=== PATIENT | male | born 1975 | race Caucasian/White ===

== ENCOUNTER 2020-12-14 17:28 | Emergency (ER) | payer OTHER ==
--- NOTE | 2020-12-14 18:45 | EDM.PDOC ---
ED HPI GENERAL MEDICAL PROBLEM - General Chief Complaint: Respiratory Problem Stated Complaint: COUGH Time Seen by Provider: 12/14/20 17:36 Source of Information: Reports: Patient History Limitations: Reports: No Limitations - History of Present Illness INITIAL COMMENTS - FREE TEXT/NARRATIVE: HISTORY AND PHYSICAL: History of present illness: Patient is a 45-year-old male who presents emergency room today with concern of possible COVID-19 viral infection. Patient states morning when he woke up, he has had general body aches and a cough. Patient states that he is not vaccin ated for Covid so came to the emergency room concerned that he was possibly infected. Patient denies any other symptoms or concerns. Patient denies fever, chills, chest pain, shortness of breath. Denies headache, neck stiff ness, change in vision, syncope, or near syncope. Denies nausea, vomiting, abdominal pain, diarrhea, constipation, or dysuria. Has not noted any blood in urine or stool. Patient has been eating and drinking appropriately. Review of systems: As per history of present illness and below otherwise all systems reviewed and negative. Past medical history: As per history of present illness and as reviewed below otherwise noncontributory. Surgical history: As per history of present illness and as reviewed below otherwise noncontributory. Social history: See social history for further information Family history: As per history of present illness and as reviewed below otherwise noncontributory. Physical exam: General: Patient is alert, oriented, and in no acute distress. Patient sitting comfortably on exam table. HEENT: Atraumatic, normocephalic, pupils equal and reactive bilaterally, negative for conjunctival pallor or scleral icterus, mucous membranes moist, TMs normal bilaterally, throat clear, neck supple, nontender, trachea midline. No drooling or trismus noted. No meningeal signs. No hot potato voice noted. Lungs: Clear to auscultation, breath sounds equal bilaterally, chest nontender. Heart: S1S2, regular rate and rhythm without overt murmur Abdomen: Soft, nondistended, nontender. Negative for masses or hepatosplenomegaly. Negative for costovertebral tenderness. Pelvis: Stable nontender. Genitourinary: Deferred. Rectal: Deferred. Skin: Intact, warm, dry. No lesions or rashes noted. Extremities: Atraumatic, negative for cords or calf pain. Neurovascular unremarkable. Neuro: Awake, alert, oriented. Cranial nerves II through XII unremarkable. Cerebellum unremarkable. Motor and sensory unremarkable throughout. Exam nonfocal. Notes: Signs and symptoms that were prompt return to the ED thoroughly discussed with patient. Discussed importance for follow-up with a primary care provider. Voices understanding and is agreeable to plan of care. Denies any further questions or concerns at this time. Diagnostics: COVID19, due to patient's mild tachycardia, basic lab work was offered, however, he declines at this time. All risks versus benefits discussed with patient expresses understanding. Therapeutics: None Prescription: None Impression: COVID-19 viral infection Plan: 1. Your COVID-19 screening is positive. That means you do have the coronavirus and are considered contagious. Your vital signs and oxygen saturation are well enough that you were able to monitor your symptoms at home. Continue to monitor for trouble breathing, new confusion or inability to arouse, bluish lips or face or any of the other symptoms we discussed -if this occurs please return to the emergency room.Continue to monitor your health at home for worsening symptoms so that you can be taken care of and treated quickly if needed. 2. Please self quarantine until 10 days have passed since your symptoms began AND you are fever free (<100.4 degrees fahrenheit) for 24 hours without the use of fever-reducing medications AND symptoms are improving. You should restrict activities outside of your home, except for getting medical care. Do not go to work, school, or public areas. Avoid using public transportation, ride-sharing, or taxis. Inform any persons that you have been in contact with since you started becoming symptomatic that you have tested positive; they should be made aware and take the appropriate steps as needed. 3. You may alternate Tylenol and ibuprofen as needed for pain and fever management. 4. The [facility] will be calling you and following up with you. The [place] COVID 19 Hotline phone number , They are open Saturday - Saturday 7am - 7pm. Follow up with your primary care provider for re-evaluation and re-testing after quarantine and discuss when you should be seen. 5. For more specific guidelines regarding isolation/quarantine please visit this website. https://www.health.[place].gov/sites/www /files/documents/Files/HARJINDER/coronavirus/Factsheet_for_People_With_COVID-19.pdf Definitive disposition and diagnosis as appropriate pending reevaluation and review of above. Bilateral Back Pain Score (Numeric/FACES): 3 - Related Data Allergies Allergy/AdvReac Type Severity Reaction Status Date / Time amoxicillin [Amoxicillin] Allergy Mild Hives Verified 12/14/20 18:32 Home Meds: Home Meds Losartan/Hydrochlorothiazide [Losartan-HCTZ 100-12.5 MG] 1 each PO 12/14/20 [History] Past Medical History - Past Health History Medical/Surgical History: Denies Medical/Surgical History ED ROS GENERAL - Review of Systems Review Of Systems: Comprehensive ROS is negative, except as noted in HPI. ED EXAM, GENERAL - Physical Exam Exam: See Below (see dictation) Course - Vital Signs Last Recorded V/S: Last Vital Signs Temp 98.5 F 12/14/20 18:55 Pulse 115 H 12/14/20 18:55 Resp 20 12/14/20 18:55 BP 135/87 12/14/20 18:55 Pulse Ox 94 L 12/14/20 18:55 - Orders/Labs/Meds Labs: Laboratory Tests 12/14/20 Range/Units 18:45 SARS-CoV-2 RNA (SHIKHA) POSITIVE H (NEGATIVE) Departure - Departure Time of Disposition: 18:44 Disposition: Home, Self-Care 01 Clinical Impression: COVID-19 virus infection - Discharge Information Instructions: COVID-19 Frequently Asked Questions Referrals: PCP,None [Primary Care Provider] - Forms: ED Department Discharge Additional Instructions: The following information is given to patients seen in the emergency department who are being discharged to home. This information is to outline your options for follow-up care. We provide all patients seen in our emergency department with a follow-up referral. The need for follow-up, as well as the timing and circumstances, are variable depending upon the specifics of your emergency department visit. If you don't have a primary care physician on staff, we will provide you with a referral. We always advise you to contact your personal physician following an emergency department visit to inform them of the circumstance of the visit and for follow-up with them and/or the need for any referrals to a consulting specialist. The emergency department will also refer you to a specialist when appropriate. This referral assures that you have the opportunity for follow-up care with a specialist. All of these measure are taken in an effort to provide you with optimal care, which includes your follow-up. Under all circumstances we always encourage you to contact your private physician who remains a resource for coordinating your care. When calling for follow-up care, please make the office aware that this follow-up is from your recent emergency room visit. If for any reason you are refused follow-up, please contact the [facility] Emergency Department at and asked to speak to the emergency department charge nurse. [facility] [address] [place] [address] [facility] [address] [place] [id number] 1. Your COVID-19 screening is positive. That means you do have the coronavirus and are considered contagious. Your vital signs and oxygen saturation are well enough that you were able to monitor your symptoms at home. Continue to monitor for trouble breathing, new confusion or inability to arouse, bluish lips or face or any of the other symptoms we discussed -if this occurs please return to the emergency room.Continue to monitor your health at home for worsening symptoms so that you can be taken care of and treated quickly if needed. 2. Please self quarantine until 10 days have passed since your symptoms began AND you are fever free (<100.4 degrees fahrenheit) for 24 hours without the use of fever-reducing medications AND symptoms are improving. You should restrict activities outside of your home, except for getting medical care. Do not go to work, school, or public areas. Avoid using public transportation, ride-sharing, or taxis. Inform any persons that you have been in contact with since you started becoming symptomatic that you have tested positive; they should be made aware and take the appropriate steps as needed. 3. You may alternate Tylenol and ibuprofen as needed for pain and fever management. 4. The [facility] will be calling you and following up with you. The [place] COVID 19 Hotline phone number , They are open Saturday - 7am - 7pm. Follow up with your primary care provider for re-evaluation and re-testing after quarantine and discuss when you should be seen. 5. For more specific guidelines regarding isolation/quarantine please visit this website. https://www.health.[place].gov/sites/www/files/documents/Files/HARJINDER/coronavirus/Factsh eet_for_People_With_COVID-19.pdf Sepsis Event Note (ED) - Focused Exam Vital Signs: Vital Signs Temp Pulse Resp BP Pulse Ox 12/14/20 18:55 98.5 F 115 H 20 135/87 94 L 12/14/20 18:30 98.4 F 111 H 18 149/98 H 96
[2020-12-14 18:56] VITALS: BP 135/87; PULSE 115
== END 2020-12-14 18:58 | disposition home or self-care (01) ==
LOC: MW.ED 17:28
DX: U07.1 COVID-19 (principal); Z88.0 Allergy status to penicillin
CPT/HCPCS: 99283; U0002

== ENCOUNTER 2020-12-23 13:55 | Inpatient (IN) | payer OTHER ==
[2020-12-23] MEDS ORDERED: Sodium Chloride 0.9% 2.5 ML Syringe FLUSH PRN (14:09)
[2020-12-23] MEDS ORDERED: Sodium Chloride 0.9% 10 ML Syringe FLUSH PRN (14:09)
[2020-12-23] MEDS ORDERED: Dexamethasone 4 MG Tab PO ONE (14:17)
[2020-12-23] MEDS ORDERED: Acetaminophen 500 MG Tab PO ONE (14:17)
--- NOTE | 2020-12-23 14:38 | PCM.EKG ---
#1 Interpretation EKG Date: 12/23/20 Time: 14:16 Rhythm: NSR Rate (Beats/Min): 104 Fouke: Normal P-Wave: Present QRS: Normal ST-T: Normal QT: Normal Comparison: NA - No Prior EKG EKG Interpretation Comments: Sinus Tachycardia
--- NOTE | 2020-12-23 15:01 | EDM.PDOC ---
ED HPI GENERAL MEDICAL PROBLEM - General Chief Complaint: Respiratory Problem Stated Complaint: LOW OXYGEN Time Seen by Provider: 12/23/20 14:09 - History of Present Illness INITIAL COMMENTS - FREE TEXT/NARRATIVE: CHIEF COMPLAINT(S): Shortness of breath HISTORY OF PRESENT ILLNESS: This is a 45-year-old man with a past medical history of obesity and hypertension who comes to the emergency department with a chief complaint of shortness of breath. The patient states that he was diagnosed with COVID-19 on December 14, 2020. He states that his symptoms started the exact same day. He states that he has just not been getting better and he went to the walk-in clinic because of increased shortness of breath. He states that they sent him here to the emergency department because his oxygen was low in the 84% range. He states that he has had increase shortness of breath, mild intermittent dry cough and body aches. He states that he has been using Tylenol and ibuprofen. He states that his shortness of breath is worse with ambulation. He denies any chest pain, lower extremity edema, recent travel, recent surgery or prior history of DVT or PE. He denies any other symptoms. REVIEW OF SYSTEMS: Constitutional: Positive for fever Eyes: Denies eye pain Ears, Nose, Mouth, & Throat: Denies earache Cardiovascular: Denies chest pain Respiratory: Positive for shortness of breath and nonproductive cough gastrointestinal: Denies Nausea, vomiting, diarrhea, hematochezia. Genitourinary: Denies hematuria Skin:Denies a rash MSK: Positive for body aches Neurological: Denies blurred vision Psychiatric: Denies depression PAST MEDICAL HISTORY: As per history of present illness and as reviewed below otherwise noncontributory. SURGICAL HISTORY: As per history of present illness and as reviewed below otherwise noncontributory. SOCIAL HISTORY: As per history of present illness and as reviewed below otherwise noncontributory. FAMILY HISTORY: As per history of present illness and as reviewed below otherwise noncontributory. EXAMINATION OF ORGAN SYSTEMS/BODY AREAS: Constitutional: Blood pressure is 99/64, heart rate 105, respiratory rate 28 with an oxygen saturation of 92% on 4 L nasal cannula. Temperature 38.2 General: Young man who appears to be in a mild amount of respiratory distress Psychiatric: Appropriate mood and affect. Eyes: No scleral icterus or conjunctival erythema ENMT: Moist mucous membranes. No pharyngeal erythema Cardiovascular: Regular, rate, and rhythm. No gallops, murmurs, or rubs. Bilateral upper extremity pulses symmetric and intact. No peripheral edema. No JVD. Respiratory: Lungs clear to auscultation bilaterally. No wheezes, rales, or rhonchi. Speaking in full sentences. Gastrointestinal: Soft, non-tender, non-distended. Normoactive bowel sounds Genitourinary: No suprapubic tenderness Musculoskeletal: Normal range of motion. Skin: No lesions or abrasions. Neurological: Alert, GCS 15 MEDICAL DECISION MAKING AND COURSE IN THE ED WITH INTERPRETATION/REVIEW OF DIAGNOSTIC STUDIES: This is a 45-year-old man with a past medical history of obesity and hypertension who comes to the emergency department with worsening shortness of breath, nonproductive cough who was found to be profoundly hypoxic at walk-in clinic who is currently saturating appropriately on 4 L nasal cannula with some mild shortness of breath. Cardiac monitoring at this time did reveal sinus tachycardia and pulse oximetry with good waveform was 92 to 93% on 4 L nasal cannula. We did place the patient on cardiac monitoring and pulse oximetry. We did obtain an EKG which was unremarkable. Will obtain CBC, CMP, CRP, troponin, chest x-ray and we will also obtain an angiogram of the chest to evaluate for pulmonary embolism. We will provide the patient with dexamethasone 6 mg by mouth and Tylenol for his fever. At this time the patient does meet SIRS criteria however the patient is known Covid positive. We will provide the patient with a mild bolus as we do note that excessive fluid hydration in Covid can cause significant worsening of their symptoms.' Laboratory: CBC is unremarkable. CMP reveals hyponatremia at 132, hypochloremia at 96, metabolic acidosis with a bicarbonate of 17.8. Acute kidney injury with a BUN of 58 and a creatinine of 2.4. Hyperglycemia at 115. Mild elevation in AST at 58. Hypoalbuminemia at 3.0. Troponin is negative. The radiological images were viewed by myself along with reading the report from the radiologist. CT angiogram of the chest reveals no acute pulmonary embolism. There is diffuse bilateral groundglass opacities consistent with COVID-19. After imaging I did discuss the results with the patient. At this time I did discuss admission. He was amenable to this plan. I contacted Dr. Cabrera who accepted the patient for admission. DISPOSITION: The patient was admitted to the hospital in stable condition. CONDITION: Fair PROCEDURES: Cardiac monitoring interpretation, pulse oximetry interpretation FINAL IMPRESSION(S)/DIAGNOSES: 1. Acute hypoxic respiratory failure secondary to COVID-19 pneumonia 2. Acute kidney injury 3. Acute metabolic acidosis likely secondary to #1 and #2 Critical Care Procedure Note Authorized and performed by: Leon Burch M.D. Critical Care Time: 40 minutes Due to a high probability of clinically significant, life threatening deterioration, the patient required my highest level of preparedness to intervene emergently and I personally spent this critical care time directly and personally managing the patient. This critical care time included obtaining a history, examining the patient, pulse oximetry; ordering and review of studies; arranging urgent treatment with development of a management plan; evaluation of a patients reponse to treatment; frequent assessment; and discussions with other providers. This critical care time was performed to assess and manage the high probability of imminent, life threatening deterioration that could result in multiorgan failure. It was exclusive of separate billable procedures and treating other patients. Please see MDM section and rest of the note for further information on patient assessment and treatment. Please see MDM section and rest of the note for further information on patient assessment and treatment. Leon Burch M.D. Treatments HAT COPYIST: Reports: Acetaminophen, NSAIDS lower back Pain Score (Numeric/FACES): 2 - Related Data Allergies Allergy/AdvReac Type Severity Reaction Status Date / Time amoxicillin [Amoxicillin] Allergy Mild Hives Verified 12/23/20 18:25 Home Meds: Home Meds Losartan/Hydrochlorothiazide [Losartan-HCTZ 100-12.5 MG] 1 each PO DAILY 12/14/20 [History] amLODIPine [Norvasc] 5 mg PO DAILY 12/23/20 [History] Past Medical History - Past Health History Medical/Surgical History: Denies Medical/Surgical History HEENT History: Reports: None Cardiovascular History: Reports: Hypertension Respiratory History: Reports: None Gastrointestinal History: Reports: None Genitourinary History: Reports: None Musculoskeletal History: Reports: None Neurological History: Reports: None Psychiatric History: Reports: None Endocrine/Metabolic History: Reports: None Hematologic History: Reports: None Immunologic History: Reports: None Oncologic (Cancer) History: Reports: None Dermatologic History: Reports: None - Infectious Disease History Infectious Disease History: Reports: Chicken Pox, Novel Coronavirus - Past Surgical History Head Surgeries/Procedures: Reports: None GI Surgical History: Reports: Cholecystectomy Male Surgical History: Reports: Vasectomy Social & Family History - Family History Family Medical History: No Pertinent Family History - Tobacco Use Tobacco Use Status *Q: Never Tobacco User Second Hand Smoke Exposure: No - Caffeine Use Caffeine Use: Reports: Soda - Recreational Drug Use Recreational Drug Use: No ED ROS GENERAL - Review of Systems Review Of Systems: See Below ED EXAM, GENERAL - Physical Exam Exam: See Below Course - Vital Signs Last Recorded V/S: Last Vital Signs Temp 36.3 C 12/24/20 01:10 Pulse 77 12/24/20 01:10 Resp 20 12/24/20 01:10 BP 106/64 12/24/20 01:10 Pulse Ox 91 L 12/24/20 01:10 - Orders/Labs/Meds Orders: Active Orders 24 hr Category Date Time Status Cardiac Monitoring [RC] . DIRECTED Care 12/23/20 14:10 Active Pulse Oximetry [RC] ASDIRECTED Care 12/23/20 14:10 Active Sodium Chloride 0.9% [Saline Flush] Med 12/23/20 14:09 Active 10 ml FLUSH ASDIRECTED PRN Sodium Chloride 0.9% [Saline Flush] Med 12/23/20 14:09 Active 2.5 ml FLUSH ASDIRECTED PRN Saline Lock Insert [OM.PC] Stat Oth 12/23/20 14:10 Ordered Medication Orders Acetaminophen (Acetaminophen 325 Mg Tab) 650 mg PO Q6H PRN PRN Reason: Fever Albuterol/Ipratropium (Albuterol/Ipratropium 4 Gm Inhalation [place]) 0 gm INH Q4H PRN PRN Reason: Dyspnea Dexamethasone (Dexamethasone 4 Mg Tab) 6 mg PO Q24H CAMERON Enoxaparin Sodium (Enoxaparin 40 Mg/0.4 Ml Syringe) 40 mg SUBCUT Q24H CAMERON Last Admin: 12/23/20 19:46 Dose: 40 mg Documented by: NATTY Guaifenesin/Dextromethorphan (Guaifenesin/Dextromethorphan 100-10 Mg/5 Ml Soln 10 Ml Cup) 10 ml PO Q4H PRN PRN Reason: Cough Last Admin: 12/23/20 20:24 Dose: 10 ml Documented by: NATTY Remdesivir 100 mg/ Sodium (Chloride) 100 mls @ 100 mls/hr IV Q24H CAMERON Stop: 12/27/20 22:59 Pantoprazole Sodium (Pantoprazole 40 Mg Tab.Cr) 40 mg PO DAILY CAMERON Sodium Chloride (Sodium Chloride 0.9% 10 Ml Syringe) 10 ml FLUSH ASDIRECTED PRN PRN Reason: Keep Vein Open Last Admin: 12/23/20 14:26 Dose: 10 ml Documented by: SILAS Sodium Chloride (Sodium Chloride 0.9% 2.5 Ml Syringe) 2.5 ml FLUSH ASDIRECTED PRN PRN Reason: Keep Vein Open Last Admin: 12/23/20 14:26 Dose: 2.5 ml Documented by: SILAS Labs: Laboratory Tests 12/23/20 12/23/20 Range/Units 14:40 14:40 WBC 6.88 (4.0-11.0) K/uL RBC 4.90 (4.50-5.90) M/uL Hgb 15.8 (13.0-17.0) g/dL Hct 43.5 (38.0-50.0) % MCV 88.8 (80.0-98.0) fL MCH 32.2 H (27.0-32.0) pg MCHC 36.3 (31.0-37.0) g/dL RDW Std Deviation 41.6 (28.0-62.0) fl RDW Coeff of David 13 (11.0-15.0) % Plt Count 180 (150-400) K/uL MPV 10.00 (7.40-12.00) fL Neut % (Auto) 77.1 (48.0-80.0) % Lymph % (Auto) 16.7 (16.0-40.0) % Webster % (Auto) 6.1 (0.0-15.0) % Eos % (Auto) 0.0 (0.0-7.0) % Baso % (Auto) 0.1 (0.0-1.5) % Neut # (Auto) 5.3 (1.4-5.7) K/uL Lymph # (Auto) 1.2 (0.6-2.4) K/uL Webster # (Auto) 0.4 (0.0-0.8) K/uL Eos # (Auto) 0.0 (0.0-0.7) K/uL Baso # (Auto) 0.0 (0.0-0.1) K/uL Nucleated RBC % 0.0 /100WBC Nucleated RBCs # 0 K/uL Sodium 132 L (136-148) mmol/L Potassium 4.3 (3.5-5.1) mmol/L Chloride 96 L (98-107) mmol/L Carbon Dioxide 17.8 L (21.0-32.0) mmol/L BUN 58 H (7.0-18.0) mg/dL Creatinine 2.4 H (0.8-1.3) mg/dL Est Cr Clr Drug Dosing 38.46 mL/min Estimated GFR (MDRD) 29.3 ml/min Glucose 115 H (74-106) mg/dL Calcium 8.3 L (8.5-10.1) mg/dL Total Bilirubin 0.5 (0.2-1.0) mg/dL AST 58 H (15-37) IU/L ALT 27 (14-63) IU/L Alkaline Phosphatase 22 L (46-116) U/L Troponin I < 0.050 (0.000-0.056) ng/mL C-Reactive Protein 11.80 H (0.00-0.90) mg/dL Total Protein 7.5 (6.4-8.2) g/dL Albumin 3.0 L (3.4-5.0) g/dL Globulin 4.5 H (2.6-4.0) g/dL Albumin/Globulin Ratio 0.7 L (0.9-1.6) Meds: Medications Generic Name Dose Route Start Last Admin Trade Name Freq PRN Reason Stop Dose Admin Acetaminophen 650 mg 12/23/20 19:06 Acetaminophen 325 Mg Tab PO Q6H PRN Fever Albuterol/Ipratropium 0 gm 12/23/20 18:06 Albuterol/Ipratropium 4 Gm Inhalation [place] INH Q4H PRN Dyspnea Dexamethasone 6 mg 12/24/20 14:00 Dexamethasone 4 Mg Tab PO Q24H CAMERON Enoxaparin Sodium 40 mg 12/23/20 18:00 12/23/20 19:46 Enoxaparin 40 Mg/0.4 Ml Syringe SUBCUT 40 mg Q24H CAMERON Administration Guaifenesin/Dextromethorphan 10 ml 12/23/20 18:07 12/23/20 20:24 Guaifenesin/Dextromethorphan 100-10 Mg/5 Ml Soln 10 Ml Cup PO 10 ml Q4H PRN Administration Cough Remdesivir 100 mg/ Sodium 100 mls @ 100 mls/hr 12/24/20 22:00 Chloride IV 12/27/20 22:59 Q24H CAMERON Pantoprazole Sodium 40 mg 12/24/20 09:00 Pantoprazole 40 Mg Tab.Cr PO DAILY CAMERON Sodium Chloride 10 ml 12/23/20 14:09 12/23/20 14:26 Sodium Chloride 0.9% 10 Ml Syringe FLUSH 10 ml ASDIRECTED PRN Administration Keep Vein Open Sodium Chloride 2.5 ml 12/23/20 14:09 12/23/20 14:26 Sodium Chloride 0.9% 2.5 Ml Syringe FLUSH 2.5 ml ASDIRECTED PRN Administration Keep Vein Open Discontinued Medications Generic Name Dose Route Start Last Admin Trade Name Freq PRN Reason Stop Dose Admin Acetaminophen 1,000 mg 12/23/20 14:17 12/23/20 14:25 Acetaminophen 500 Mg Tab PO 12/23/20 14:18 1,000 mg ONETIME ONE Administration Dexamethasone 6 mg 12/23/20 14:17 12/23/20 14:25 Dexamethasone 4 Mg Tab PO 12/23/20 14:18 6 mg ONETIME ONE Administration Lactated Ringer's 1,000 mls @ 999 mls/hr 12/23/20 15:15 12/23/20 15:06 Ringers, Lactated IV 999 mls/hr ASDIRECTED CAMERON Administration Lactated Ringer's 1,000 mls @ 150 mls/hr 12/23/20 15:45 12/23/20 18:06 Ringers, Lactated IV 150 mls/hr ASDIRECTED CAMERON Administration Remdesivir 200 mg/ Sodium 250 mls @ 250 mls/hr 12/23/20 18:01 12/23/20 22:13 Chloride IV 12/23/20 18:02 250 mls/hr ONETIME ONE Administration Iopamidol 80 ml 12/23/20 16:53 12/23/20 16:54 Iopamidol 755 Mg/Ml 500 Ml Multipack Bottle IVPUSH 12/23/20 16:54 80 ml ONETIME ONE Administration Departure - Departure Time of Disposition: 17:59 Disposition: Admitted As Inpatient 65 Condition: Serious Clinical Impression: COVID-19 virus infection - Discharge Information Sepsis Event Note (ED) - Evaluation Sepsis Screening Result: Possible Sepsis Risk - My Orders Last 24 Hours: My Active Orders 12/23/20 14:09 Sodium Chloride 0.9% [Saline Flush] 10 ml FLUSH ASDIRECTED PRN Sodium Chloride 0.9% [Saline Flush] 2.5 ml FLUSH ASDIRECTED PRN 12/23/20 14:10 Cardiac Monitoring [RC] . DIRECTED Pulse Oximetry [RC] ASDIRECTED Saline Lock Insert [OM.PC] Stat - Assessment/Plan Last 24 Hours: My Active Orders 12/23/20 14:09 Sodium Chloride 0.9% [Saline Flush] 10 ml FLUSH ASDIRECTED PRN Sodium Chloride 0.9% [Saline Flush] 2.5 ml FLUSH ASDIRECTED PRN 12/23/20 14:10 Cardiac Monitoring [RC] . DIRECTED Pulse Oximetry [RC] ASDIRECTED Saline Lock Insert [OM.PC] Stat
[2020-12-23] MEDS ORDERED: Lactated Ringers 1,000 ML IV SCH ×2 (15:15→15:45)
--- NOTE | 2020-12-23 15:25 | CR ---
INDICATION: Shortness of breath TECHNIQUE: Chest 1 view. COMPARISON: FINDINGS: Cardiovascular and mediastinum: Heart size and vasculature are normal in caliber and appearance. Mediastinum is within normal limits. Lungs and pleural space: Patchy airspace opacities. No sign of pleural effusion. No pneumothorax. Bones and soft tissues: No significant findings. IMPRESSION: Bilateral patchy airspace opacities. Correlate with pneumonia clinically. Dictated by Liu Isaac MD @ 12/23/2020 3:24:08 PM (Electronically Signed)
[2020-12-23 15:26] LABS: BLOOD UREA NITROGEN,BUN 58 mg/dL (7.0-18.0); CARBON DIOXIDE,CO2 17.8 mmol/L (21.0-32.0); CHLORIDE,CL 96 mmol/L (98-107); GLUCOSE RANDOM 115 mg/dL (74-106); POTASSIUM,K 4.3 mmol/L (3.5-5.1); SODIUM,NA 132 mmol/L (136-148)
--- NOTE | 2020-12-23 16:27 | CT ---
INDICATION: COVID positive, shortness of breath TECHNIQUE: CT chest pulmonary PE protocol acquired with 80cc Isovue 370 IV contrast. COMPARISON: Chest radiograph from today FINDINGS: Cardiovascular structures: Normal vascular enhancement of the pulmonary arteries, no sign of pulmonary embolism. Heart size is normal. No sign of aneurysm in the thoracic aorta. Mediastinum and brea: No mass or adenopathy. Lungs: Patchy bilateral ground-glass opacities throughout the lungs. Pleura and pericardium: No effusions. Chest wall and axilla: No mass or adenopathy. Upper abdomen: Status post cholecystectomy. Hepatic steatosis. Bones: Scoliosis IMPRESSION: No pulmonary embolism. Diffuse bilateral ground-glass opacities throughout the lungs are consistent with COVID infection. Hepatic steatosis. Status post cholecystectomy. Please note that all CT scans at this facility use dose modulation, iterative reconstruction, and/or weight-based dosing when appropriate to reduce radiation dose to as low as reasonably achievable. Dictated by Lizet Addison MD @ 12/23/2020 4:26:16 PM (Electronically Signed)
[2020-12-23] MEDS ORDERED: Iopamidol 755 MG/ML 500 ML Multipack Bottle IVPUSH ONE (16:53)
[2020-12-23] MEDS ORDERED: REMDESIVIR 200 MG in Sodium Chloride 0.9% 250 ML IV ONE (18:01)
[2020-12-23] MEDS ORDERED: Albuterol/Ipratropium 4 GM Inhalation Spray INH PRN (18:06)
[2020-12-23] MEDS ORDERED: guaiFENesin/Dextromethorphan 100-10 MG/5 ML Soln 10 ML Cup PO PRN (18:07)
--- NOTE | 2020-12-23 18:58 | PCM.HP.2 ---
<Wolfgang Horta - Last Filed: 12/23/20 19:12> H&P History of Present Illness - General Date of Service: 12/23/20 - History of Present Illness Initial Comments - Free Text/Narative: The patient is a 45-year-old male, on day 1 of service, with a signif icant past medical history of obesity and hypertension, who was admitted to the hospital for acute respiratory failure secondary to COVID-19 pneumonia. On 12/14 the patient was tested for COVID-19 pneumonia and was found to be positive. Two days prior to this day the patient was having fevers ranging from 101-102, and had a dry cough. He tried both Tylenol and ibuprofen to alleviate his fever wi th little to no relief. Over the subsequent days the patient started to feel weak and fatigued. On 12/18 the patient started to have body aches, diarrhea which was nonbloody, and loss of taste and smell. On 12/20 the patient started to develop shortness of breath which has progressively gotten worse to the point where he presented to the hospital today. He denies chest pain, palpitations, recent travel, recent sick contacts, nausea, vomiting, and any issues with urination. With respect to social history, the patient states that he does not smoke, use recreational drugs, or consume alcohol. His only allergies are to amoxicillin/penicillins. He has a family history of hypertension in both of his parents. On CBC, he has a white blood cell count of 6.8, hemoglobin of 15.8, hematocrit of 43.5, and platelets of 180 On CMP, he has a sodium level of 132, potassium of 4.3, chloride of 96, CO2 of 17.8, BUN of 58, and creatinine of 2.4 He had a CRP of 11.80 and is a candidate for baricitinib treatment In the emergency room: -the patient received Tylenol 1000 mg per oral route once, dexamethasone 6 mg per oral once, and lactated Ringer's 1 L, 2 boluses. -He had a CT angiogram done which showed diffuse bilateral ground glass opacities consistent with COVID-19 infection, no pulmonary embolism, he is status post cholecystectomy, hepatic steatosis and scoliosis were also seen -Chest x-ray done showed bilateral patchy airspace opacities -He had a EKG done which showed sinus tachycardia lower back Pain Score (Numeric/FACES): 2 - Related Data Allergies/Adverse Reactions: Allergies Allergy/AdvReac Type Severity Reaction Status Date / Time amoxicillin [Amoxicillin] Allergy Mild Hives Verified 12/23/20 18:25 Home Medications: Home Meds Losartan/Hydrochlorothiazide [Losartan-HCTZ 100-12.5 MG] 1 each PO DAILY 12/14/20 [History] amLODIPine [Norvasc] 5 mg PO DAILY 12/23/20 [History] Past Medical History - Past Health History Medical/Surgical History: Denies Medical/Surgical History HEENT History: Reports: None Cardiovascular History: Reports: Hypertension Respiratory History: Reports: None Gastrointestinal History: Reports: None Genitourinary History: Reports: None Musculoskeletal History: Reports: None Neurological History: Reports: None Psychiatric History: Reports: None Endocrine/Metabolic History: Reports: None Hematologic History: Reports: None Immunologic History: Reports: None Oncologic (Cancer) History: Reports: None Dermatologic History: Reports: None - Infectious Disease History Infectious Disease History: Reports: Chicken Pox, Novel Coronavirus - Past Surgical History Head Surgeries/Procedures: Reports: None GI Surgical History: Reports: Cholecystectomy Male Surgical History: Reports: Vasectomy Social & Family History - Family History Family Medical History: No Pertinent Family History - Tobacco Use Tobacco Use Status *Q: Never Tobacco User Second Hand Smoke Exposure: No - Caffeine Use Caffeine Use: Reports: Soda - Recreational Drug Use Recreational Drug Use: No H&P Review of Systems - Review of Systems: Review Of Systems: See Below General: Reports: Fever, Fatigue. Denies: Night Sweats, Decreased Appetite HEENT: Denies: Headaches, Sore Throat Pulmonary: Reports: Shortness of Breath, Cough Cardiovascular: Reports: Dyspnea on Exertion. Denies: Chest Pain, Palpitations Gastrointestinal: Reports: Diarrhea. Denies: Abdominal Pain, Constipation Genitourinary: Denies: Dysuria, Frequency Musculoskeletal: Reports: Other (Body aches) Exam - Exam Exam: See Below - Vital Signs Vital Signs: Last Vital Signs Temp 97.9 F 12/23/20 18:24 Pulse 86 12/23/20 18:24 Resp 19 12/23/20 18:24 BP 109/61 12/23/20 18:24 Pulse Ox 94 L 12/23/20 18:24 Weight: 120.769 kg - Exam General: Alert, Oriented, Cooperative HEENT: Mucosa Moist & [place] Neck: Trachea Midline Lungs: Wheezing Cardiovascular: Regular Rate, Regular Rhythm GI/Abdominal Exam: Normal Bowel Sounds, Soft, Non-Tender Extremities: No: Pedal Edema - Patient Data Lab Results Last 24 hrs: Laboratory Results - last 24 hr 12/23/20 12/23/20 Range/Units 14:40 14:40 WBC 6.88 (4.0-11.0) K/uL RBC 4.90 (4.50-5.90) M/uL Hgb 15.8 (13.0-17.0) g/dL Hct 43.5 (38.0-50.0) % MCV 88.8 (80.0-98.0) fL MCH 32.2 H (27.0-32.0) pg MCHC 36.3 (31.0-37.0) g/dL RDW Std Deviation 41.6 (28.0-62.0) fl RDW Coeff of David 13 (11.0-15.0) % Plt Count 180 (150-400) K/uL MPV 10.00 (7.40-12.00) fL Neut % (Auto) 77.1 (48.0-80.0) % Lymph % (Auto) 16.7 (16.0-40.0) % Castro % (Auto) 6.1 (0.0-15.0) % Eos % (Auto) 0.0 (0.0-7.0) % Baso % (Auto) 0.1 (0.0-1.5) % Neut # (Auto) 5.3 (1.4-5.7) K/uL Lymph # (Auto) 1.2 (0.6-2.4) K/uL Castro # (Auto) 0.4 (0.0-0.8) K/uL Eos # (Auto) 0.0 (0.0-0.7) K/uL Baso # (Auto) 0.0 (0.0-0.1) K/uL Nucleated RBC % 0.0 /100WBC Nucleated RBCs # 0 K/uL Sodium 132 L (136-148) mmol/L Potassium 4.3 (3.5-5.1) mmol/L Chloride 96 L (98-107) mmol/L Carbon Dioxide 17.8 L (21.0-32.0) mmol/L BUN 58 H (7.0-18.0) mg/dL Creatinine 2.4 H (0.8-1.3) mg/dL Est Cr Clr Drug Dosing 38.46 mL/min Estimated GFR (MDRD) 29.3 ml/min Glucose 115 H (74-106) mg/dL Calcium 8.3 L (8.5-10.1) mg/dL Total Bilirubin 0.5 (0.2-1.0) mg/dL AST 58 H (15-37) IU/L ALT 27 (14-63) IU/L Alkaline Phosphatase 22 L (46-116) U/L Troponin I < 0.050 (0.000-0.056) ng/mL C-Reactive Protein 11.80 H (0.00-0.90) mg/dL Total Protein 7.5 (6.4-8.2) g/dL Albumin 3.0 L (3.4-5.0) g/dL Globulin 4.5 H (2.6-4.0) g/dL Albumin/Globulin Ratio 0.7 L (0.9-1.6) Result Diagrams: 12/23/20 14:40 12/23/20 14:40 Sepsis Event Note - Evaluation Sepsis Screening Result: No Definite Risk - Focused Exam Vital Signs: Vital Signs Temp Pulse Resp BP Pulse Ox 12/23/20 18:24 97.9 F 86 19 109/61 94 L 12/23/20 17:53 84 20 111/65 93 L 12/23/20 16:46 88 20 94/57 L 92 L 12/23/20 15:54 98.2 F 78 18 128/71 97 12/23/20 15:01 82 20 141/73 H 94 L 12/23/20 14:06 100.7 F H 105 H 28 H 99/64 92 L - Problem List (1) MEAGHAN (acute kidney injury) SNOMED Code(s): 12593293, 70456808 ICD Code: N17.9 - ACUTE KIDNEY FAILURE, UNSPECIFIED Status: Acute Current Visit: Yes (2) HTN (hypertension) SNOMED Code(s): 65137517 ICD Code: I10 - ESSENTIAL (PRIMARY) HYPERTENSION Status: Acute Current Visit: Yes (3) Hyponatremia SNOMED Code(s): 30236072 ICD Code: E87.1 - HYPO-OSMOLALITY AND HYPONATREMIA Status: Acute Current Visit: Yes (4) COVID-19 virus infection SNOMED Code(s): 223940295 ICD Code: U07.1 - COVID-19 Status: Acute Current Visit: No Problem List Initiated/Reviewed/Updated: Yes Orders Last 24hrs: Active Orders 24 hr Category Date Time Status Cardiac Monitoring [RC] . DIRECTED Care 12/23/20 14:10 Active Pulse Oximetry [RC] ASDIRECTED Care 12/23/20 14:10 Active RT Post Treatment Assessment [RC] Click to Edit Care 12/23/20 18:06 Active RT Pre-Treatment Assessment [RC] Click to Edit Care 12/23/20 18:06 Active Regular Diet [DIET] Diet 12/23/20 Dinner Active CBC WITH AUTO DIFF [HEME] AM Lab 12/24/20 05:11 Ordered CBC WITH AUTO DIFF [HEME] AM Lab 12/25/20 05:11 Ordered CBC WITH AUTO DIFF [HEME] AM Lab 12/26/20 05:11 Ordered CMP [COMPREHENSIVE METABOLIC PN,CMP] [CHEM] AM Lab 12/24/20 05:11 Ordered CMP [COMPREHENSIVE METABOLIC PN,CMP] [CHEM] AM Lab 12/25/20 05:11 Ordered CMP [COMPREHENSIVE METABOLIC PN,CMP] [CHEM] AM Lab 12/26/20 05:11 Ordered Albuterol/Ipratropium [Combivent Respimat] Med 12/23/20 18:06 Active 0 gm INH Q4H PRN Baricitinib [Olumiant] Med 12/24/20 09:00 Ordered 4 mg PO DAILY Dextromethorphan/guaiFENesin [Robitussin DM] Med 12/23/20 18:07 Active 10 ml PO Q4H PRN Enoxaparin [Lovenox] Med 12/23/20 18:00 Active 40 mg SUBCUT Q24H Lactated Ringers [Ringers, Lactated] 1,000 ml Med 12/23/20 15:15 Active IV ASDIRECTED Lactated Ringers [Ringers, Lactated] 1,000 ml Med 12/23/20 15:45 Active IV ASDIRECTED Pantoprazole [ProTONIX] Med 12/24/20 09:00 Active 40 mg PO DAILY Remdesivir 100 mg Med 12/24/20 18:15 Pending Sodium Chloride 0.9% [Normal Saline] 100 ml IV Q24H Remdesivir 200 mg Med 12/23/20 18:01 Pending Sodium Chloride 0.9% [Normal Saline] 250 ml IV ONETIME Sodium Chloride 0.9% [Saline Flush] Med 12/23/20 14:09 Active 10 ml FLUSH ASDIRECTED PRN Sodium Chloride 0.9% [Saline Flush] Med 12/23/20 14:09 Active 2.5 ml FLUSH ASDIRECTED PRN dexAMETHasone Med 12/24/20 14:00 Active 6 mg PO Q24H Saline Lock Insert [OM.PC] Stat Oth 12/23/20 14:10 Ordered Medication Orders Albuterol/Ipratropium (Albuterol/Ipratropium 4 Gm Inhalation [place]) 0 gm INH Q4H PRN PRN Reason: Dyspnea Dexamethasone (Dexamethasone 4 Mg Tab) 6 mg PO Q24H [facility] Enoxaparin Sodium (Enoxaparin 40 Mg/0.4 Ml Syringe) 40 mg SUBCUT Q24H [facility] Guaifenesin/Dextromethorphan (Guaifenesin/Dextromethorphan 100-10 Mg/5 Ml Soln 10 Ml Cup) 10 ml PO Q4H PRN PRN Reason: Cough Lactated Ringer's (Ringers, Lactated) 1,000 mls @ 999 mls/hr IV ASDIRECTED [facility] Last Admin: 12/23/20 15:06 Dose: 999 mls/hr Documented by: HAMICAS Lactated Ringer's (Ringers, Lactated) 1,000 mls @ 150 mls/hr IV ASDIRECTED [facility] Last Admin: 12/23/20 18:06 Dose: 150 mls/hr Documented by: HAMICAS Remdesivir 200 mg/ Sodium (Chloride) 250 mls @ 250 mls/hr IV ONETIME ONE Stop: 12/23/20 18:02 Remdesivir 100 mg/ Sodium (Chloride) 100 mls @ 100 mls/hr IV Q24H [facility] Stop: 12/27/20 19:14 Pantoprazole Sodium (Pantoprazole 40 Mg Tab.Cr) 40 mg PO DAILY [facility] Sodium Chloride (Sodium Chloride 0.9% 10 Ml Syringe) 10 ml FLUSH ASDIRECTED PRN PRN Reason: Keep Vein Open Last Admin: 12/23/20 14:26 Dose: 10 ml Documented by: SILAS Sodium Chloride (Sodium Chloride 0.9% 2.5 Ml Syringe) 2.5 ml FLUSH ASDIRECTED PRN PRN Reason: Keep Vein Open Last Admin: 12/23/20 14:26 Dose: 2.5 ml Documented by: SILAS Assessment/Plan Comment:: Admit the patient to the medical floor, vitals per unit routine, activity up ad bruce., regular diet, DVT prophylaxis with Lovenox subcutaneous 40 mg once a day, GI prophylaxis with pantoprazole 40 mg per oral route once a day 1. Acute respiratory failure secondary to COVID-19 pneumonia -We have initiated the patient on remdesivir 200 mg per IV route once today, starting tomorrow the patient will receive 100 mg of remdesivir per IV route, 4 doses each day -The patient received 1 dose of dexamethasone per oral route in the emergency room, we will continue the patient tomorrow on 6 mg of dexamethasone per oral route once a day -For shortness of breath the patient has been placed on Combivent every 4 hours as needed -For cough the patient has been placed on Robitussin DM 10 mL every 4 hours as needed -The patient is currently saturating 92 to 94% on 4 L of oxygen, we will con tinue to supply oxygen as needed -The patient agreed to Baricitinib treatment and signed, we will start with 4 mg per oral route once a day -For fever the patient has Tylenol 650 mg per oral route on board -We will encourage incentive spirometry in the prone position 2. Acute kidney injury -The patient was given 2 boluses of lactated Ringer's in the emergency room -The patient can eat and drink and we have encouraged oral hydration to decrease his creatinine levels -We will monitor kidney function with daily morning CMP 3. Hyponatremia -Because the patient sodium levels are over 130 and he is asymptomatic, we have encouraged food and fluid intake -If his levels drop below 130 we will think about normal saline as a treatment -Daily CMP/CBC 4. Hypertension -The patient is currently hypotensive with the last blood pressure being 95/57 and 111/65 -For now we will hold his home blood pressure medications of amlodipine and losartan/hydrochlorothiazide <Norma Cabrera - Last Filed: 12/24/20 15:38> Exam - Vital Signs Vital Signs: Last Vital Signs Temp 36.5 C 12/24/20 13:09 Pulse 87 12/24/20 13:09 Resp 19 12/24/20 13:09 BP 109/61 12/24/20 13:09 Pulse Ox 93 L 12/24/20 13:09 - Patient Data Lab Results Last 24 hrs: Laboratory Results - last 24 hr 12/24/20 12/24/20 Range/Units 05:25 05:25 WBC 3.89 L (4.0-11.0) K/uL RBC 4.46 L (4.50-5.90) M/uL Hgb 14.3 (13.0-17.0) g/dL Hct 39.9 (38.0-50.0) % MCV 89.5 (80.0-98.0) fL MCH 32.1 H (27.0-32.0) pg MCHC 35.8 (31.0-37.0) g/dL RDW Std Deviation 41.0 (28.0-62.0) fl RDW Coeff of David 13 (11.0-15.0) % Plt Count 216 (150-400) K/uL MPV 10.20 (7.40-12.00) fL Neut % (Auto) 68.3 (48.0-80.0) % Lymph % (Auto) 21.9 (16.0-40.0) % Castro % (Auto) 9.5 (0.0-15.0) % Eos % (Auto) 0.0 (0.0-7.0) % Baso % (Auto) 0.3 (0.0-1.5) % Neut # (Auto) 2.7 (1.4-5.7) K/uL Lymph # (Auto) 0.9 (0.6-2.4) K/uL Castro # (Auto) 0.4 (0.0-0.8) K/uL Eos # (Auto) 0.0 (0.0-0.7) K/uL Baso # (Auto) 0.0 (0.0-0.1) K/uL Nucleated RBC % 0.0 /100WBC Nucleated RBCs # 0 K/uL Sodium 138 (136-148) mmol/L Potassium 4.7 (3.5-5.1) mmol/L Chloride 103 (98-107) mmol/L Carbon Dioxide 25.7 (21.0-32.0) mmol/L BUN 45 H (7.0-18.0) mg/dL Creatinine 1.3 (0.8-1.3) mg/dL Est Cr Clr Drug Dosing 71.00 mL/min Estimated GFR (MDRD) 59.4 ml/min Glucose 164 H (74-106) mg/dL Calcium 8.1 L (8.5-10.1) mg/dL Total Bilirubin 0.4 (0.2-1.0) mg/dL AST 42 H (15-37) IU/L ALT 30 (14-63) IU/L Alkaline Phosphatase 20 L (46-116) U/L Total Protein 6.1 L (6.4-8.2) g/dL Albumin 2.6 L (3.4-5.0) g/dL Globulin 3.5 (2.6-4.0) g/dL Albumin/Globulin Ratio 0.7 L (0.9-1.6) Result Diagrams: 12/24/20 05:25 12/24/20 05:25 Sepsis Event Note - Focused Exam Vital Signs: Vital Signs Temp Pulse Resp BP Pulse Ox 12/24/20 13:09 36.5 C 87 19 109/61 93 L 12/24/20 09:29 36.2 C 74 18 104/63 93 L 12/24/20 04:32 36.5 C 19 109/65 93 L Orders Last 24hrs: Active Orders 24 hr Category Date Time Status Incentive Spirometry [RT Incentive Spirometry] [RC] Care 12/24/20 14:12 Active Q2HWA RT Post Treatment Assessment [RC] Click to Edit Care 12/23/20 18:06 Active RT Pre-Treatment Assessment [RC] Click to Edit Care 12/23/20 18:06 Active Telemetry Monitoring [Cardiac Monitoring] [RC] Q8H Care 12/23/20 18:09 Active Regular Diet [DIET] Diet 12/23/20 Dinner Active CBC WITH AUTO DIFF [HEME] AM Lab 12/25/20 05:11 Ordered CBC WITH AUTO DIFF [HEME] AM Lab 12/25/20 05:11 Ordered CBC WITH AUTO DIFF [HEME] AM Lab 12/26/20 05:11 Ordered CMP [COMPREHENSIVE METABOLIC PN,CMP] [CHEM] AM Lab 12/25/20 05:11 Ordered CMP [COMPREHENSIVE METABOLIC PN,CMP] [CHEM] AM Lab 12/25/20 05:11 Ordered CMP [COMPREHENSIVE METABOLIC PN,CMP] [CHEM] AM Lab 12/26/20 05:11 Ordered Acetaminophen [TylenoL] Med 12/23/20 19:06 Active 650 mg PO Q6H PRN Albuterol/Ipratropium [Combivent Respimat] Med 12/23/20 18:06 Active 0 gm INH Q4H PRN Calcium Carbonate [Tums] Med 12/24/20 14:57 Active 500 mg PO Q4HR PRN Enoxaparin [Lovenox] Med 12/23/20 18:00 Active 40 mg SUBCUT Q24H Pantoprazole [ProTONIX] Med 12/24/20 09:00 Active 40 mg PO DAILY Remdesivir 100 mg Med 12/24/20 22:00 Active Sodium Chloride 0.9% [Normal Saline] 100 ml IV Q24H dexAMETHasone Med 12/24/20 14:00 Active 6 mg PO Q24H guaiFENesin [Robitussin] Med 12/24/20 12:00 Active 100 mg PO Q4H PRN Medication Orders Acetaminophen (Acetaminophen 325 Mg Tab) 650 mg PO Q6H PRN PRN Reason: Fever Albuterol/Ipratropium (Albuterol/Ipratropium 4 Gm Inhalation [place]) 0 gm INH Q4H PRN PRN Reason: Dyspnea Calcium Carbonate/Glycine (Calcium Carbonate 500 Mg Tab.Chew) 500 mg PO Q4HR PRN PRN Reason: Indigestion Dexamethasone (Dexamethasone 4 Mg Tab) 6 mg PO Q24H [facility] Last Admin: 12/24/20 14:04 Dose: 6 mg Documented by: MANDO Enoxaparin Sodium (Enoxaparin 40 Mg/0.4 Ml Syringe) 40 mg SUBCUT Q24H [facility] Last Admin: 12/23/20 19:46 Dose: 40 mg Documented by: NATTY Guaifenesin (Guaifenesin 100 Mg/5 Ml Soln 5 Ml Ud Cup) 100 mg PO Q4H PRN PRN Reason: Cough Remdesivir 100 mg/ Sodium (Chloride) 100 mls @ 100 mls/hr IV Q24H [facility] Stop: 12/27/20 22:59 Pantoprazole Sodium (Pantoprazole 40 Mg Tab.Cr) 40 mg PO DAILY [facility] Last Admin: 12/24/20 09:17 Dose: 40 mg Documented by: MANDO Sodium Chloride (Sodium Chloride 0.9% 10 Ml Syringe) 10 ml FLUSH ASDIRECTED PRN PRN Reason: Keep Vein Open Last Admin: 12/23/20 14:26 Dose: 10 ml Documented by: SILAS Sodium Chloride (Sodium Chloride 0.9% 2.5 Ml Syringe) 2.5 ml FLUSH ASDIRECTED PRN PRN Reason: Keep Vein Open Last Admin: 12/23/20 14:26 Dose: 2.5 ml Documented by: SILAS Assessment/Plan Comment:: I performed a history and physical exam of the patient and discussed management with resident. I have reviewed the residents note and agree with documented findings and plan unless otherwise specified in my note.
[2020-12-23] MEDS ORDERED: Acetaminophen 325 MG Tab PO PRN (19:06)
[2020-12-23] MEDS: Enoxaparin 40 MG/0.4 ML Syringe SUBCUT SCH (19:46)
[2020-12-24 06:33] LABS: CARBON DIOXIDE,CO2 25.7 mmol/L (21.0-32.0); POTASSIUM,K 4.7 mmol/L (3.5-5.1)
[2020-12-24] MEDS: Pantoprazole 40 MG Tab.CR PO SCH (09:17)
[2020-12-24] MEDS ORDERED: Calcium Carbonate 500 MG Tab.Chew PO ONE (13:12)
[2020-12-24] MEDS: Dexamethasone 4 MG Tab PO SCH (14:04)
--- NOTE | 2020-12-24 14:56 | PCM.PN ---
- General Info Date of Service: 12/24/20 Subjective Update: Patient seen at bedside, no acute distress, resting comfortably - Review of Systems General: Reports: Malaise. Denies: Weakness, Fatigue, Chills, Night Sweats HEENT: Denies: Visual Changes Pulmonary: Reports: Shortness of Breath, Cough, Sputum. Denies: Pleuritic Chest Pain, Hemoptysis Cardiovascular: Reports: Dyspnea on Exertion. Denies: Chest Pain, Palpitations, Orthopnea Gastrointestinal: Denies: Abdominal Pain, Constipation, Decreased Appetite Genitourinary: Denies: Dysuria, Frequency, Burning, Pain, Urgency Musculoskeletal: Denies: Neck Pain, Shoulder Pain, Arm Pain, Hand Pain Skin: Denies: Cyanosis, Jaundice, Mottled, Pallor - Patient Data Vitals - Most Recent: Last Vital Signs Temp 36.5 C 12/24/20 13:09 Pulse 87 12/24/20 13:09 Resp 19 12/24/20 13:09 BP 109/61 12/24/20 13:09 Pulse Ox 93 L 12/24/20 13:09 Weight - Most Recent: 120.656 kg I&O - Last 24 Hours: Intake & Output 12/23/20 12/24/20 12/24/20 22:59 06:59 14:59 Intake Total 1920 Output Total 1025 Balance 895 Lab Results Last 24 Hours: Laboratory Results - last 24 hr 12/23/20 12/24/20 12/24/20 Range/Units 14:40 05:25 05:25 WBC 3.89 L (4.0-11.0) K/uL RBC 4.46 L (4.50-5.90) M/uL Hgb 14.3 (13.0-17.0) g/dL Hct 39.9 (38.0-50.0) % MCV 89.5 (80.0-98.0) fL MCH 32.1 H (27.0-32.0) pg MCHC 35.8 (31.0-37.0) g/dL RDW Std Deviation 41.0 (28.0-62.0) fl RDW Coeff of David 13 (11.0-15.0) % Plt Count 216 (150-400) K/uL MPV 10.20 (7.40-12.00) fL Neut % (Auto) 68.3 (48.0-80.0) % Lymph % (Auto) 21.9 (16.0-40.0) % [place] % (Auto) 9.5 (0.0-15.0) % Eos % (Auto) 0.0 (0.0-7.0) % Baso % (Auto) 0.3 (0.0-1.5) % Neut # (Auto) 2.7 (1.4-5.7) K/uL Lymph # (Auto) 0.9 (0.6-2.4) K/uL [place] # (Auto) 0.4 (0.0-0.8) K/uL Eos # (Auto) 0.0 (0.0-0.7) K/uL Baso # (Auto) 0.0 (0.0-0.1) K/uL Nucleated RBC % 0.0 /100WBC Nucleated RBCs # 0 K/uL Sodium 132 L 138 (136-148) mmol/L Potassium 4.3 4.7 (3.5-5.1) mmol/L Chloride 96 L 103 (98-107) mmol/L Carbon Dioxide 17.8 L 25.7 (21.0-32.0) mmol/L BUN 58 H 45 H (7.0-18.0) mg/dL Creatinine 2.4 H 1.3 (0.8-1.3) mg/dL Est Cr Clr Drug Dosing 38.46 71.00 mL/min Estimated GFR (MDRD) 29.3 59.4 ml/min Glucose 115 H 164 H (74-106) mg/dL Calcium 8.3 L 8.1 L (8.5-10.1) mg/dL Total Bilirubin 0.5 0.4 (0.2-1.0) mg/dL AST 58 H 42 H (15-37) IU/L ALT 27 30 (14-63) IU/L Alkaline Phosphatase 22 L 20 L (46-116) U/L Troponin I < 0.050 (0.000-0.056) ng/mL C-Reactive Protein 11.80 H (0.00-0.90) mg/dL Total Protein 7.5 6.1 L (6.4-8.2) g/dL Albumin 3.0 L 2.6 L (3.4-5.0) g/dL Globulin 4.5 H 3.5 (2.6-4.0) g/dL Albumin/Globulin Ratio 0.7 L 0.7 L (0.9-1.6) Med Orders - Current: Current Medications Acetaminophen (Acetaminophen 325 Mg Tab) 650 mg PO Q6H PRN PRN Reason: Fever Albuterol/Ipratropium (Albuterol/Ipratropium 4 Gm Inhalation [place]) 0 gm INH Q4H PRN PRN Reason: Dyspnea Dexamethasone (Dexamethasone 4 Mg Tab) 6 mg PO Q24H [facility] Last Admin: 12/24/20 14:04 Dose: 6 mg Documented by: Enoxaparin Sodium (Enoxaparin 40 Mg/0.4 Ml Syringe) 40 mg SUBCUT Q24H [facility] Last Admin: 12/23/20 19:46 Dose: 40 mg Documented by: Guaifenesin (Guaifenesin 100 Mg/5 Ml Soln 5 Ml Ud Cup) 100 mg PO Q4H PRN PRN Reason: Cough Remdesivir 100 mg/ Sodium (Chloride) 100 mls @ 100 mls/hr IV Q24H [facility] Stop: 12/27/20 22:59 Pantoprazole Sodium (Pantoprazole 40 Mg Tab.Cr) 40 mg PO DAILY [facility] Last Admin: 12/24/20 09:17 Dose: 40 mg Documented by: Sodium Chloride (Sodium Chloride 0.9% 10 Ml Syringe) 10 ml FLUSH ASDIRECTED PRN PRN Reason: Keep Vein Open Last Admin: 12/23/20 14:26 Dose: 10 ml Documented by: Sodium Chloride (Sodium Chloride 0.9% 2.5 Ml Syringe) 2.5 ml FLUSH ASDIRECTED PRN PRN Reason: Keep Vein Open Last Admin: 12/23/20 14:26 Dose: 2.5 ml Documented by: Discontinued Medications Acetaminophen (Acetaminophen 500 Mg Tab) 1,000 mg PO ONETIME ONE Stop: 12/23/20 14:18 Last Admin: 12/23/20 14:25 Dose: 1,000 mg Documented by: Calcium Carbonate/Glycine (Calcium Carbonate 500 Mg Tab.Chew) 1,000 mg PO ONETIME ONE Stop: 12/24/20 13:13 Last Admin: 12/24/20 14:04 Dose: 1,000 mg Documented by: Dexamethasone (Dexamethasone 4 Mg Tab) 6 mg PO ONETIME ONE Stop: 12/23/20 14:18 Last Admin: 12/23/20 14:25 Dose: 6 mg Documented by: Guaifenesin/Dextromethorphan (Guaifenesin/Dextromethorphan 100-10 Mg/5 Ml Soln 10 Ml Cup) 10 ml PO Q4H PRN PRN Reason: Cough Last Admin: 12/23/20 20:24 Dose: 10 ml Documented by: Lactated Ringer's (Ringers, Lactated) 1,000 mls @ 999 mls/hr IV ASDIRECTED [facility] Last Admin: 12/23/20 15:06 Dose: 999 mls/hr Documented by: Lactated Ringer's (Ringers, Lactated) 1,000 mls @ 150 mls/hr IV ASDIRECTED [facility] Last Admin: 12/23/20 18:06 Dose: 150 mls/hr Documented by: Remdesivir 200 mg/ Sodium (Chloride) 250 mls @ 250 mls/hr IV ONETIME ONE Stop: 12/23/20 18:02 Last Admin: 12/23/20 22:13 Dose: 250 mls/hr Documented by: Iopamidol (Iopamidol 755 Mg/Ml 500 Ml Multipack Bottle) 80 ml IVPUSH ONETIME ONE Stop: 12/23/20 16:54 Last Admin: 12/23/20 16:54 Dose: 80 ml Documented by: - Exam Quality Assessment: Supplemental Oxygen General: Alert, Oriented Lungs: Clear to Auscultation, Normal Respiratory Effort, Decreased Breath Sounds, Crackles, Rales Cardiovascular: Regular Rate, Regular Rhythm, No Murmurs GI/Abdominal Exam: Normal Bowel Sounds, Soft, Non-Tender - Patient Data Lab Results Last 24 hrs: Laboratory Results - last 24 hr 12/23/20 12/24/20 12/24/20 Range/Units 14:40 05:25 05:25 WBC 3.89 L (4.0-11.0) K/uL RBC 4.46 L (4.50-5.90) M/uL Hgb 14.3 (13.0-17.0) g/dL Hct 39.9 (38.0-50.0) % MCV 89.5 (80.0-98.0) fL MCH 32.1 H (27.0-32.0) pg MCHC 35.8 (31.0-37.0) g/dL RDW Std Deviation 41.0 (28.0-62.0) fl RDW Coeff of David 13 (11.0-15.0) % Plt Count 216 (150-400) K/uL MPV 10.20 (7.40-12.00) fL Neut % (Auto) 68.3 (48.0-80.0) % Lymph % (Auto) 21.9 (16.0-40.0) % [place] % (Auto) 9.5 (0.0-15.0) % Eos % (Auto) 0.0 (0.0-7.0) % Baso % (Auto) 0.3 (0.0-1.5) % Neut # (Auto) 2.7 (1.4-5.7) K/uL Lymph # (Auto) 0.9 (0.6-2.4) K/uL [place] # (Auto) 0.4 (0.0-0.8) K/uL Eos # (Auto) 0.0 (0.0-0.7) K/uL Baso # (Auto) 0.0 (0.0-0.1) K/uL Nucleated RBC % 0.0 /100WBC Nucleated RBCs # 0 K/uL Sodium 132 L 138 (136-148) mmol/L Potassium 4.3 4.7 (3.5-5.1) mmol/L Chloride 96 L 103 (98-107) mmol/L Carbon Dioxide 17.8 L 25.7 (21.0-32.0) mmol/L BUN 58 H 45 H (7.0-18.0) mg/dL Creatinine 2.4 H 1.3 (0.8-1.3) mg/dL Est Cr Clr Drug Dosing 38.46 71.00 mL/min Estimated GFR (MDRD) 29.3 59.4 ml/min Glucose 115 H 164 H (74-106) mg/dL Calcium 8.3 L 8.1 L (8.5-10.1) mg/dL Total Bilirubin 0.5 0.4 (0.2-1.0) mg/dL AST 58 H 42 H (15-37) IU/L ALT 27 30 (14-63) IU/L Alkaline Phosphatase 22 L 20 L (46-116) U/L Troponin I < 0.050 (0.000-0.056) ng/mL C-Reactive Protein 11.80 H (0.00-0.90) mg/dL Total Protein 7.5 6.1 L (6.4-8.2) g/dL Albumin 3.0 L 2.6 L (3.4-5.0) g/dL Globulin 4.5 H 3.5 (2.6-4.0) g/dL Albumin/Globulin Ratio 0.7 L 0.7 L (0.9-1.6) Result Diagrams: 12/24/20 05:25 12/24/20 05:25 Sepsis Event Note - Evaluation Sepsis Screening Result: No Definite Risk - Focused Exam Vital Signs: Vital Signs Temp Pulse Resp BP Pulse Ox 12/24/20 13:09 36.5 C 87 19 109/61 93 L 12/24/20 09:29 36.2 C 74 18 104/63 93 L 12/24/20 04:32 36.5 C 19 109/65 93 L - Problem List Review Problem List Initiated/Reviewed/Updated: Yes - My Orders Last 24 Hours: My Active Orders 12/23/20 18:09 Telemetry Monitoring [Cardiac Monitoring] [RC] Q8H - Plan Plan:: Admit the patient to the medical floor, vitals per unit routine, activity up ad bruce., regular diet, DVT prophylaxis with Lovenox subcutaneous 40 mg once a day, GI prophylaxis with pantoprazole 40 mg per oral route once a day 1. Acute respiratory failure secondary to COVID-19 pneumonia -Continue 100 mg of remdesivir per IV route, 4 doses each day -Continue dexamethasone 6 mg daily -For shortness of breath the patient has been placed on Combivent every 4 hours as needed -For cough the patient has been placed on Robitussin DM 10 mL every 4 hours as needed -Lovenox for DVT prophylaxis -The patient is currently saturating 92 to 94% on 4 L of oxygen, we will continue to supply oxygen as needed -For fever the patient has Tylenol 650 mg per oral route on board -We will encourage incentive spirometry in the prone position 2. Acute kidney injury -Resolved 3. Hyponatremia -Resolved 4. Hypertension -We will hold off on antihypertensive medications for now as blood pressure is on the softer side, resume when appropriate
[2020-12-24] MEDS ORDERED: Calcium Carbonate 500 MG Tab.Chew PO PRN (14:57)
[2020-12-24] MEDS: Enoxaparin 40 MG/0.4 ML Syringe SUBCUT SCH (18:04)
[2020-12-24] MEDS: REMDESIVIR 100 MG in Sodium Chloride 0.9% 100 ML IV SCH (21:45)
[2020-12-25] MEDS: guaiFENesin 100 MG/5 ML Soln 5 ML UD Cup PO PRN ×2 (03:31→08:59)
[2020-12-25 07:01] LABS: BLOOD UREA NITROGEN,BUN 33 mg/dL (7.0-18.0); CARBON DIOXIDE,CO2 26.3 mmol/L (21.0-32.0); CHLORIDE,CL 105 mmol/L (98-107); GLUCOSE RANDOM 157 mg/dL (74-106); POTASSIUM,K 5.1 mmol/L (3.5-5.1); SODIUM,NA 140 mmol/L (136-148)
[2020-12-25] MEDS: Pantoprazole 40 MG Tab.CR PO SCH (08:59)
[2020-12-25] MEDS: Dexamethasone 4 MG Tab PO SCH (14:50)
--- NOTE | 2020-12-25 16:41 | PCM.PN ---
- General Info Date of Service: 12/25/20 Subjective Update: The patient is a 45-year-old male, on day 3 of service, with a significant past medical history of obesity and hypertension, who was admitted for acute respiratory failure secondary to COVID-19 pneumonia. The patient was also suffering from acute kidney injury and hyponatremia upon admission to the hospital, however both of those conditions have been corrected. The patient also suffers from hypertension but had normotensive blood pressures while in hospital thus far and as a result his medications are being held. Upon interview today, the patient is eating and drinking without any issues, and has no complaints with urination and/or defecation. He admits that his shortness of breath has improved, and is more prominent upon exertion than at rest. He still has a cough which is productive of white sputum and devoid of blood. He has not had any fever since being in the hospital. He is currently saturating above 90% while on 3 L of oxygen. The patient has no other complaints at this time. - Review of Systems General: Denies: Fever, Weakness, Fatigue, Chills HEENT: Denies: Headaches Pulmonary: Reports: Shortness of Breath, Cough Cardiovascular: Reports: Dyspnea on Exertion. Denies: Chest Pain, Palpitations Gastrointestinal: Denies: Abdominal Pain Genitourinary: Denies: Dysuria - Patient Data Vitals - Most Recent: Last Vital Signs Temp 98.1 F 12/25/20 16:34 Pulse 67 12/25/20 16:34 Resp 18 12/25/20 16:34 BP 118/73 12/25/20 16:34 Pulse Ox 92 L 12/25/20 16:34 Weight - Most Recent: 266 lb I&O - Last 24 Hours: Intake & Output 12/25/20 12/25/20 12/25/20 06:59 14:59 22:59 Intake Total 1000 Output Total 1000 Balance 0 Lab Results Last 24 Hours: Laboratory Results - last 24 hr 12/25/20 12/25/20 Range/Units 05:20 05:20 WBC 6.86 (4.0-11.0) K/uL RBC 4.50 (4.50-5.90) M/uL Hgb 14.5 (13.0-17.0) g/dL Hct 41.1 (38.0-50.0) % MCV 91.3 (80.0-98.0) fL MCH 32.2 H (27.0-32.0) pg MCHC 35.3 (31.0-37.0) g/dL RDW Std Deviation 43.0 (28.0-62.0) fl RDW Coeff of David 13 (11.0-15.0) % Plt Count 281 (150-400) K/uL MPV 10.10 (7.40-12.00) fL Neut % (Auto) 75.9 (48.0-80.0) % Lymph % (Auto) 14.0 L (16.0-40.0) % [place] % (Auto) 9.8 (0.0-15.0) % Eos % (Auto) 0.0 (0.0-7.0) % Baso % (Auto) 0.3 (0.0-1.5) % Neut # (Auto) 5.2 (1.4-5.7) K/uL Lymph # (Auto) 1.0 (0.6-2.4) K/uL [place] # (Auto) 0.7 (0.0-0.8) K/uL Eos # (Auto) 0.0 (0.0-0.7) K/uL Baso # (Auto) 0.0 (0.0-0.1) K/uL Nucleated RBC % 0.0 /100WBC Nucleated RBCs # 0 K/uL Sodium 140 (136-148) mmol/L Potassium 5.1 (3.5-5.1) mmol/L Chloride 105 (98-107) mmol/L Carbon Dioxide 26.3 (21.0-32.0) mmol/L BUN 33 H (7.0-18.0) mg/dL Creatinine 1.1 (0.8-1.3) mg/dL Est Cr Clr Drug Dosing 83.91 mL/min Estimated GFR (MDRD) > 60.0 ml/min Glucose 157 H (74-106) mg/dL Calcium 8.3 L (8.5-10.1) mg/dL Total Bilirubin 0.4 (0.2-1.0) mg/dL AST 37 (15-37) IU/L ALT 29 (14-63) IU/L Alkaline Phosphatase 21 L (46-116) U/L Total Protein 6.1 L (6.4-8.2) g/dL Albumin 2.6 L (3.4-5.0) g/dL Globulin 3.5 (2.6-4.0) g/dL Albumin/Globulin Ratio 0.7 L (0.9-1.6) Med Orders - Current: Current Medications Acetaminophen (Acetaminophen 325 Mg Tab) 650 mg PO Q6H PRN PRN Reason: Fever Albuterol/Ipratropium (Albuterol/Ipratropium 4 Gm Inhalation [place]) 0 gm INH Q4H PRN PRN Reason: Dyspnea Calcium Carbonate/Glycine (Calcium Carbonate 500 Mg Tab.Chew) 500 mg PO Q4HR PRN PRN Reason: Indigestion Dexamethasone (Dexamethasone 4 Mg Tab) 6 mg PO Q24H [facility] Last Admin: 12/25/20 14:50 Dose: 6 mg Documented by: Enoxaparin Sodium (Enoxaparin 40 Mg/0.4 Ml Syringe) 40 mg SUBCUT Q24H [facility] Last Admin: 12/24/20 18:04 Dose: 40 mg Documented by: Guaifenesin (Guaifenesin 100 Mg/5 Ml Soln 5 Ml Ud Cup) 100 mg PO Q4H PRN PRN Reason: Cough Last Admin: 12/25/20 08:59 Dose: 100 mg Documented by: Remdesivir 100 mg/ Sodium (Chloride) 100 mls @ 100 mls/hr IV Q24H [facility] Stop: 12/27/20 22:59 Last Admin: 12/24/20 21:45 Dose: 100 mls/hr Documented by: Pantoprazole Sodium (Pantoprazole 40 Mg Tab.Cr) 40 mg PO DAILY [facility] Last Admin: 12/25/20 08:59 Dose: 40 mg Documented by: Sodium Chloride (Sodium Chloride 0.9% 10 Ml Syringe) 10 ml FLUSH ASDIRECTED PRN PRN Reason: Keep Vein Open Last Admin: 12/23/20 14:26 Dose: 10 ml Documented by: Sodium Chloride (Sodium Chloride 0.9% 2.5 Ml Syringe) 2.5 ml FLUSH ASDIRECTED PRN PRN Reason: Keep Vein Open Last Admin: 12/23/20 14:26 Dose: 2.5 ml Documented by: Discontinued Medications Acetaminophen (Acetaminophen 500 Mg Tab) 1,000 mg PO ONETIME ONE Stop: 12/23/20 14:18 Last Admin: 12/23/20 14:25 Dose: 1,000 mg Documented by: Calcium Carbonate/Glycine (Calcium Carbonate 500 Mg Tab.Chew) 1,000 mg PO ONETIME ONE Stop: 12/24/20 13:13 Last Admin: 12/24/20 14:04 Dose: 1,000 mg Documented by: Dexamethasone (Dexamethasone 4 Mg Tab) 6 mg PO ONETIME ONE Stop: 12/23/20 14:18 Last Admin: 12/23/20 14:25 Dose: 6 mg Documented by: Guaifenesin/Dextromethorphan (Guaifenesin/Dextromethorphan 100-10 Mg/5 Ml Soln 10 Ml Cup) 10 ml PO Q4H PRN PRN Reason: Cough Last Admin: 12/23/20 20:24 Dose: 10 ml Documented by: Lactated Ringer's (Ringers, Lactated) 1,000 mls @ 999 mls/hr IV ASDIRECTED [facility] Last Admin: 12/23/20 15:06 Dose: 999 mls/hr Documented by: Lactated Ringer's (Ringers, Lactated) 1,000 mls @ 150 mls/hr IV ASDIRECTED [facility] Last Admin: 12/23/20 18:06 Dose: 150 mls/hr Documented by: Remdesivir 200 mg/ Sodium (Chloride) 250 mls @ 250 mls/hr IV ONETIME ONE Stop: 12/23/20 18:02 Last Admin: 12/23/20 22:13 Dose: 250 mls/hr Documented by: Iopamidol (Iopamidol 755 Mg/Ml 500 Ml Multipack Bottle) 80 ml IVPUSH ONETIME ONE Stop: 12/23/20 16:54 Last Admin: 12/23/20 16:54 Dose: 80 ml Documented by: - Exam General: Alert, Oriented, Cooperative HEENT: Mucous Membr. Moist/[place] Neck: Trachea Midline Lungs: Wheezing Cardiovascular: Regular Rate, Regular Rhythm, No Murmurs GI/Abdominal Exam: Normal Bowel Sounds, Soft, Non-Tender Extremities: No: Pedal Edema - Patient Data Lab Results Last 24 hrs: Laboratory Results - last 24 hr 12/25/20 12/25/20 Range/Units 05:20 05:20 WBC 6.86 (4.0-11.0) K/uL RBC 4.50 (4.50-5.90) M/uL Hgb 14.5 (13.0-17.0) g/dL Hct 41.1 (38.0-50.0) % MCV 91.3 (80.0-98.0) fL MCH 32.2 H (27.0-32.0) pg MCHC 35.3 (31.0-37.0) g/dL RDW Std Deviation 43.0 (28.0-62.0) fl RDW Coeff of David 13 (11.0-15.0) % Plt Count 281 (150-400) K/uL MPV 10.10 (7.40-12.00) fL Neut % (Auto) 75.9 (48.0-80.0) % Lymph % (Auto) 14.0 L (16.0-40.0) % [place] % (Auto) 9.8 (0.0-15.0) % Eos % (Auto) 0.0 (0.0-7.0) % Baso % (Auto) 0.3 (0.0-1.5) % Neut # (Auto) 5.2 (1.4-5.7) K/uL Lymph # (Auto) 1.0 (0.6-2.4) K/uL [place] # (Auto) 0.7 (0.0-0.8) K/uL Eos # (Auto) 0.0 (0.0-0.7) K/uL Baso # (Auto) 0.0 (0.0-0.1) K/uL Nucleated RBC % 0.0 /100WBC Nucleated RBCs # 0 K/uL Sodium 140 (136-148) mmol/L Potassium 5.1 (3.5-5.1) mmol/L Chloride 105 (98-107) mmol/L Carbon Dioxide 26.3 (21.0-32.0) mmol/L BUN 33 H (7.0-18.0) mg/dL Creatinine 1.1 (0.8-1.3) mg/dL Est Cr Clr Drug Dosing 83.91 mL/min Estimated GFR (MDRD) > 60.0 ml/min Glucose 157 H (74-106) mg/dL Calcium 8.3 L (8.5-10.1) mg/dL Total Bilirubin 0.4 (0.2-1.0) mg/dL AST 37 (15-37) IU/L ALT 29 (14-63) IU/L Alkaline Phosphatase 21 L (46-116) U/L Total Protein 6.1 L (6.4-8.2) g/dL Albumin 2.6 L (3.4-5.0) g/dL Globulin 3.5 (2.6-4.0) g/dL Albumin/Globulin Ratio 0.7 L (0.9-1.6) Result Diagrams: 12/25/20 05:20 12/25/20 05:20 Sepsis Event Note - Evaluation Sepsis Screening Result: No Definite Risk - Focused Exam Vital Signs: Vital Signs Temp Pulse Resp BP Pulse Ox 12/25/20 16:34 98.1 F 67 18 118/73 92 L 12/25/20 13:00 97.3 F 70 18 109/67 91 L 12/25/20 08:00 97.8 F 64 18 111/73 90 L - Problem List & Annotations (1) MEAGHAN (acute kidney injury) SNOMED Code(s): 52022944, 77081531 Code(s): N17.9 - ACUTE KIDNEY FAILURE, UNSPECIFIED Status: Acute Current Visit: Yes (2) HTN (hypertension) SNOMED Code(s): 36149348 Code(s): I10 - ESSENTIAL (PRIMARY) HYPERTENSION Status: Acute Current Visit: Yes (3) Hyponatremia SNOMED Code(s): 59606742 Code(s): E87.1 - HYPO-OSMOLALITY AND HYPONATREMIA Status: Acute Current Visit: Yes (4) COVID-19 virus infection SNOMED Code(s): 056653042 Code(s): U07.1 - COVID-19 Status: Acute Current Visit: Yes - Problem List Review Problem List Initiated/Reviewed/Updated: Yes - My Orders Last 24 Hours: My Active Orders 12/24/20 22:00 Remdesivir 100 mg Sodium Chloride 0.9% [Normal Saline] 100 ml IV Q24H 12/25/20 14:15 Admission Status [Patient Status] [ADT] Routine 12/25/20 14:20 Code Status [Resuscitation Status] Routine 12/26/20 05:11 CBC WITH AUTO DIFF [HEME] AM CMP [COMPREHENSIVE METABOLIC PN,CMP] [CHEM] AM - Plan Plan:: 1. Acute respiratory failure secondary to COVID-19 pneumonia -Continue 100 mg of remdesivir per IV route -Continue 6 mg of dexamethasone per oral route once a day -Continue Combivent every 4 hours as needed for shortness of breath -Continue Robitussin DM 10 mL every 4 hours as needed for cough -Continue to supply oxygen as needed -Continue Tylenol 650 mg per oral route if fever arises -Continue incentive spirometry in the prone position -am CBC/CMP 2. Acute kidney injury -Corrected 3. Hyponatremia -Corrected 4. Hypertension -The patient is currently normotensive and as a result we will hold his home blood pressure medications
[2020-12-25] MEDS: Enoxaparin 40 MG/0.4 ML Syringe SUBCUT SCH (17:02)
[2020-12-25] MEDS: REMDESIVIR 100 MG in Sodium Chloride 0.9% 100 ML IV SCH (21:44)
[2020-12-26 06:47] LABS: BLOOD UREA NITROGEN,BUN 25 mg/dL (7.0-18.0); CARBON DIOXIDE,CO2 26.8 mmol/L (21.0-32.0); CHLORIDE,CL 106 mmol/L (98-107); GLUCOSE RANDOM 148 mg/dL (74-106); POTASSIUM,K 5.1 mmol/L (3.5-5.1); SODIUM,NA 142 mmol/L (136-148)
[2020-12-26] MEDS: Pantoprazole 40 MG Tab.CR PO SCH (09:46)
[2020-12-26] MEDS: Dexamethasone 4 MG Tab PO SCH (14:32)
--- NOTE | 2020-12-26 14:44 | PCM.PN ---
- General Info Date of Service: 12/26/20 - Review of Systems Systems Review Comment:: shortness of breath has improved, reports fatigue - Patient Data Vitals - Most Recent: Last Vital Signs Temp 36.2 C 12/26/20 09:00 Pulse 57 L 12/26/20 09:00 Resp 20 12/26/20 09:00 BP 123/76 12/26/20 09:00 Pulse Ox 88 L 12/26/20 09:00 Weight - Most Recent: 120.656 kg I&O - Last 24 Hours: Intake & Output 12/25/20 12/26/20 12/26/20 22:59 06:59 14:59 Intake Total 570 Output Total 500 Balance 570 -500 Lab Results Last 24 Hours: Laboratory Results - last 24 hr 12/26/20 12/26/20 Range/Units 05:35 05:35 WBC 7.12 (4.0-11.0) K/uL RBC 4.54 (4.50-5.90) M/uL Hgb 14.5 (13.0-17.0) g/dL Hct 41.2 (38.0-50.0) % MCV 90.7 (80.0-98.0) fL MCH 31.9 (27.0-32.0) pg MCHC 35.2 (31.0-37.0) g/dL RDW Std Deviation 41.7 (28.0-62.0) fl RDW Coeff of David 13 (11.0-15.0) % Plt Count 297 (150-400) K/uL MPV 9.80 (7.40-12.00) fL Neut % (Auto) 77.8 (48.0-80.0) % Lymph % (Auto) 13.6 L (16.0-40.0) % [place] % (Auto) 8.0 (0.0-15.0) % Eos % (Auto) 0.0 (0.0-7.0) % Baso % (Auto) 0.6 (0.0-1.5) % Neut # (Auto) 5.5 (1.4-5.7) K/uL Lymph # (Auto) 1.0 (0.6-2.4) K/uL [place] # (Auto) 0.6 (0.0-0.8) K/uL Eos # (Auto) 0.0 (0.0-0.7) K/uL Baso # (Auto) 0.0 (0.0-0.1) K/uL Nucleated RBC % 0.0 /100WBC Nucleated RBCs # 0 K/uL Sodium 142 (136-148) mmol/L Potassium 5.1 (3.5-5.1) mmol/L Chloride 106 (98-107) mmol/L Carbon Dioxide 26.8 (21.0-32.0) mmol/L BUN 25 H (7.0-18.0) mg/dL Creatinine 1.0 (0.8-1.3) mg/dL Est Cr Clr Drug Dosing 92.30 mL/min Estimated GFR (MDRD) > 60.0 ml/min Glucose 148 H (74-106) mg/dL Calcium 8.1 L (8.5-10.1) mg/dL Total Bilirubin 0.5 (0.2-1.0) mg/dL AST 41 H (15-37) IU/L ALT 38 (14-63) IU/L Alkaline Phosphatase 27 L (46-116) U/L Total Protein 5.7 L (6.4-8.2) g/dL Albumin 2.6 L (3.4-5.0) g/dL Globulin 3.1 (2.6-4.0) g/dL Albumin/Globulin Ratio 0.8 L (0.9-1.6) Med Orders - Current: Current Medications Acetaminophen (Acetaminophen 325 Mg Tab) 650 mg PO Q6H PRN PRN Reason: Fever Albuterol/Ipratropium (Albuterol/Ipratropium 4 Gm Inhalation [place]) 0 gm INH Q4H PRN PRN Reason: Dyspnea Calcium Carbonate/Glycine (Calcium Carbonate 500 Mg Tab.Chew) 500 mg PO Q4HR PRN PRN Reason: Indigestion Dexamethasone (Dexamethasone 4 Mg Tab) 6 mg PO Q24H [facility] Last Admin: 12/26/20 14:32 Dose: 6 mg Documented by: Enoxaparin Sodium (Enoxaparin 40 Mg/0.4 Ml Syringe) 40 mg SUBCUT Q24H [facility] Last Admin: 12/25/20 17:02 Dose: 40 mg Documented by: Guaifenesin (Guaifenesin 100 Mg/5 Ml Soln 5 Ml Ud Cup) 100 mg PO Q4H PRN PRN Reason: Cough Last Admin: 12/25/20 08:59 Dose: 100 mg Documented by: Remdesivir 100 mg/ Sodium (Chloride) 100 mls @ 100 mls/hr IV Q24H [facility] Stop: 12/27/20 22:59 Last Admin: 12/25/20 21:44 Dose: 100 mls/hr Documented by: Pantoprazole Sodium (Pantoprazole 40 Mg Tab.Cr) 40 mg PO DAILY [facility] Last Admin: 12/26/20 09:46 Dose: 40 mg Documented by: Sodium Chloride (Sodium Chloride 0.9% 10 Ml Syringe) 10 ml FLUSH ASDIRECTED PRN PRN Reason: Keep Vein Open Last Admin: 12/23/20 14:26 Dose: 10 ml Documented by: Sodium Chloride (Sodium Chloride 0.9% 2.5 Ml Syringe) 2.5 ml FLUSH ASDIRECTED PRN PRN Reason: Keep Vein Open Last Admin: 12/23/20 14:26 Dose: 2.5 ml Documented by: Discontinued Medications Acetaminophen (Acetaminophen 500 Mg Tab) 1,000 mg PO ONETIME ONE Stop: 12/23/20 14:18 Last Admin: 12/23/20 14:25 Dose: 1,000 mg Documented by: Calcium Carbonate/Glycine (Calcium Carbonate 500 Mg Tab.Chew) 1,000 mg PO ONETIME ONE Stop: 12/24/20 13:13 Last Admin: 12/24/20 14:04 Dose: 1,000 mg Documented by: Dexamethasone (Dexamethasone 4 Mg Tab) 6 mg PO ONETIME ONE Stop: 12/23/20 14:18 Last Admin: 12/23/20 14:25 Dose: 6 mg Documented by: Guaifenesin/Dextromethorphan (Guaifenesin/Dextromethorphan 100-10 Mg/5 Ml Soln 10 Ml Cup) 10 ml PO Q4H PRN PRN Reason: Cough Last Admin: 12/23/20 20:24 Dose: 10 ml Documented by: Lactated Ringer's (Ringers, Lactated) 1,000 mls @ 999 mls/hr IV ASDIRECTED [place] Last Admin: 12/23/20 15:06 Dose: 999 mls/hr Documented by: Lactated Ringer's (Ringers, Lactated) 1,000 mls @ 150 mls/hr IV ASDIRECTED [place] Last Admin: 12/23/20 18:06 Dose: 150 mls/hr Documented by: Remdesivir 200 mg/ Sodium (Chloride) 250 mls @ 250 mls/hr IV ONETIME ONE Stop: 12/23/20 18:02 Last Admin: 12/23/20 22:13 Dose: 250 mls/hr Documented by: Iopamidol (Iopamidol 755 Mg/Ml 500 Ml Multipack Bottle) 80 ml IVPUSH ONETIME ONE Stop: 12/23/20 16:54 Last Admin: 12/23/20 16:54 Dose: 80 ml Documented by: - Exam General: Alert, Oriented HEENT: Pupils Equal Neck: Supple Lungs: Normal Respiratory Effort, Rhonchi GI/Abdominal Exam: Soft, Non-Tender Extremities: Non-Tender, No Pedal Edema Skin: Warm, Dry, Intact Neurological: No New Focal Deficit - Patient Data Lab Results Last 24 hrs: Laboratory Results - last 24 hr 12/26/20 12/26/20 Range/Units 05:35 05:35 WBC 7.12 (4.0-11.0) K/uL RBC 4.54 (4.50-5.90) M/uL Hgb 14.5 (13.0-17.0) g/dL Hct 41.2 (38.0-50.0) % MCV 90.7 (80.0-98.0) fL MCH 31.9 (27.0-32.0) pg MCHC 35.2 (31.0-37.0) g/dL RDW Std Deviation 41.7 (28.0-62.0) fl RDW Coeff of David 13 (11.0-15.0) % Plt Count 297 (150-400) K/uL MPV 9.80 (7.40-12.00) fL Neut % (Auto) 77.8 (48.0-80.0) % Lymph % (Auto) 13.6 L (16.0-40.0) % [place] % (Auto) 8.0 (0.0-15.0) % Eos % (Auto) 0.0 (0.0-7.0) % Baso % (Auto) 0.6 (0.0-1.5) % Neut # (Auto) 5.5 (1.4-5.7) K/uL Lymph # (Auto) 1.0 (0.6-2.4) K/uL [facility] # (Auto) 0.6 (0.0-0.8) K/uL Eos # (Auto) 0.0 (0.0-0.7) K/uL Baso # (Auto) 0.0 (0.0-0.1) K/uL Nucleated RBC % 0.0 /100WBC Nucleated RBCs # 0 K/uL Sodium 142 (136-148) mmol/L Potassium 5.1 (3.5-5.1) mmol/L Chloride 106 (98-107) mmol/L Carbon Dioxide 26.8 (21.0-32.0) mmol/L BUN 25 H (7.0-18.0) mg/dL Creatinine 1.0 (0.8-1.3) mg/dL Est Cr Clr Drug Dosing 92.30 mL/min Estimated GFR (MDRD) > 60.0 ml/min Glucose 148 H (74-106) mg/dL Calcium 8.1 L (8.5-10.1) mg/dL Total Bilirubin 0.5 (0.2-1.0) mg/dL AST 41 H (15-37) IU/L ALT 38 (14-63) IU/L Alkaline Phosphatase 27 L (46-116) U/L Total Protein 5.7 L (6.4-8.2) g/dL Albumin 2.6 L (3.4-5.0) g/dL Globulin 3.1 (2.6-4.0) g/dL Albumin/Globulin Ratio 0.8 L (0.9-1.6) Result Diagrams: 12/26/20 05:35 12/26/20 05:35 Sepsis Event Note - Evaluation Sepsis Screening Result: No Definite Risk - Focused Exam Vital Signs: Vital Signs Temp Pulse Resp BP Pulse Ox 12/26/20 09:00 36.2 C 57 L 20 123/76 88 L - Problem List Review Problem List Initiated/Reviewed/Updated: Yes - My Orders Last 24 Hours: My Active Orders 12/26/20 13:56 Senior Interactive Producer Discontinue [Cardiac Monitoring Discontinue] [RC] Click to Edit 12/26/20 13:57 Overnight Pulse Oximetry [RC] Click to Edit Pulse Oximetry Continuous Monitoring [OM.PC] Routine - Plan Plan:: 1. Acute respiratory failure secondary to COVID-19 pneumonia -Continue remdesivr and dexamethasone -on 3 L NC -lovenox for dvt prophylaxis 2. Acute kidney injury -Corrected 3. Hyponatremia -Corrected 4. Hypertension -The patient is currently normotensive and as a result we will hold his home blood pressure medications
[2020-12-26] MEDS: Enoxaparin 40 MG/0.4 ML Syringe SUBCUT SCH (18:40)
[2020-12-26] MEDS: REMDESIVIR 100 MG in Sodium Chloride 0.9% 100 ML IV SCH (22:24)
[2020-12-27 07:16] LABS: BLOOD UREA NITROGEN,BUN 20 mg/dL (7.0-18.0); CARBON DIOXIDE,CO2 30.8 mmol/L (21.0-32.0); CHLORIDE,CL 104 mmol/L (98-107); GLUCOSE RANDOM 127 mg/dL (74-106); POTASSIUM,K 4.8 mmol/L (3.5-5.1); SODIUM,NA 142 mmol/L (136-148)
[2020-12-27] MEDS: Pantoprazole 40 MG Tab.CR PO SCH (08:39)
--- NOTE | 2020-12-27 13:05 | PCM.PN ---
- General Info Date of Service: 12/27/20 Subjective Update: The patient is a 45-year-old male, on day 5 of service, with a significant past medical history of obesity and hypertension, who was admitted for acute respiratory failure secondary to COVID-19 pneumonia. The patient was also suffering from acute kidney injury and hyponatremia upon admission to the hospital, however both of those conditions have resolved. The patient also suffers from hypertension but had normotensive blood pressures while in hospital thus far and as a result his medications are being held. Upon interview today, the patient is eating and drinking without any issues, and has no complaints with urination and/or defecation. His shortness of breath has improved, and only evident upon exertion. His cough has improved. He is currently saturating above 92% while on 4 L of oxygen. The patient has no other complaints at this time. - Review of Systems General: Denies: Fever, Weakness, Fatigue HEENT: Denies: Headaches Pulmonary: Reports: Shortness of Breath, Cough Cardiovascular: Denies: Chest Pain, Palpitations Gastrointestinal: Denies: Abdominal Pain Genitourinary: Denies: Dysuria - Patient Data Vitals - Most Recent: Last Vital Signs Temp 98.3 F 12/27/20 11:35 Pulse 74 12/27/20 11:35 Resp 20 12/27/20 11:35 BP 121/75 12/27/20 11:35 Pulse Ox 96 12/27/20 11:35 Weight - Most Recent: 266 lb I&O - Last 24 Hours: Intake & Output 12/26/20 12/27/20 12/27/20 22:59 06:59 14:59 Intake Total 1070 Output Total 1575 500 Balance -505 -500 Lab Results Last 24 Hours: Laboratory Results - last 24 hr 12/27/20 12/27/20 Range/Units 06:13 06:13 WBC 7.95 (4.0-11.0) K/uL RBC 4.63 (4.50-5.90) M/uL Hgb 14.6 (13.0-17.0) g/dL Hct 41.5 (38.0-50.0) % MCV 89.6 (80.0-98.0) fL MCH 31.5 (27.0-32.0) pg MCHC 35.2 (31.0-37.0) g/dL RDW Std Deviation 40.7 (28.0-62.0) fl RDW Coeff of David 12 (11.0-15.0) % Plt Count 294 (150-400) K/uL MPV 9.50 (7.40-12.00) fL Add Manual Diff YES Neutrophils % (Manual) 82 H (48.0-80.0) % Lymphocytes % (Manual) 13 L (16.0-40.0) % Monocytes % (Manual) 4 (0.0-15.0) % Metamyelocytes % 1 % Nucleated RBC % 0.0 /100WBC Absolute Seg Neuts 6.5 H (1.4-5.7) Lymphocytes # (Manual) 1.0 (0.6-2.4) Monocytes # (Manual) 0.3 (0.0-0.8) Absolute Metamyelocyte 0.1 Nucleated RBCs # 0 K/uL Sodium 142 (136-148) mmol/L Potassium 4.8 (3.5-5.1) mmol/L Chloride 104 (98-107) mmol/L Carbon Dioxide 30.8 (21.0-32.0) mmol/L BUN 20 H (7.0-18.0) mg/dL Creatinine 0.9 (0.8-1.3) mg/dL Est Cr Clr Drug Dosing 102.56 mL/min Estimated GFR (MDRD) > 60.0 ml/min Glucose 127 H (74-106) mg/dL Calcium 7.8 L (8.5-10.1) mg/dL Total Bilirubin 0.7 (0.2-1.0) mg/dL AST 63 H (15-37) IU/L ALT 83 H (14-63) IU/L Alkaline Phosphatase 28 L (46-116) U/L Total Protein 5.6 L (6.4-8.2) g/dL Albumin 2.5 L (3.4-5.0) g/dL Globulin 3.1 (2.6-4.0) g/dL Albumin/Globulin Ratio 0.8 L (0.9-1.6) Med Orders - Current: Current Medications Acetaminophen (Acetaminophen 325 Mg Tab) 650 mg PO Q6H PRN PRN Reason: Fever Albuterol/Ipratropium (Albuterol/Ipratropium 4 Gm Inhalation [place]) 0 gm INH Q4H PRN PRN Reason: Dyspnea Calcium Carbonate/Glycine (Calcium Carbonate 500 Mg Tab.Chew) 500 mg PO Q4HR PRN PRN Reason: Indigestion Dexamethasone (Dexamethasone 4 Mg Tab) 6 mg PO Q24H [facility] Last Admin: 12/26/20 14:32 Dose: 6 mg Documented by: Enoxaparin Sodium (Enoxaparin 40 Mg/0.4 Ml Syringe) 40 mg SUBCUT Q24H [facility] Last Admin: 12/26/20 18:40 Dose: 40 mg Documented by: Guaifenesin (Guaifenesin 100 Mg/5 Ml Soln 5 Ml Ud Cup) 100 mg PO Q4H PRN PRN Reason: Cough Last Admin: 12/25/20 08:59 Dose: 100 mg Documented by: Remdesivir 100 mg/ Sodium (Chloride) 100 mls @ 100 mls/hr IV Q24H [facility] Stop: 12/27/20 22:59 Last Admin: 12/26/20 22:24 Dose: 100 mls/hr Documented by: Pantoprazole Sodium (Pantoprazole 40 Mg Tab.Cr) 40 mg PO DAILY [facility] Last Admin: 12/27/20 08:39 Dose: 40 mg Documented by: Sodium Chloride (Sodium Chloride 0.9% 10 Ml Syringe) 10 ml FLUSH ASDIRECTED PRN PRN Reason: Keep Vein Open Last Admin: 12/23/20 14:26 Dose: 10 ml Documented by: Sodium Chloride (Sodium Chloride 0.9% 2.5 Ml Syringe) 2.5 ml FLUSH ASDIRECTED PRN PRN Reason: Keep Vein Open Last Admin: 12/23/20 14:26 Dose: 2.5 ml Documented by: Discontinued Medications Acetaminophen (Acetaminophen 500 Mg Tab) 1,000 mg PO ONETIME ONE Stop: 12/23/20 14:18 Last Admin: 12/23/20 14:25 Dose: 1,000 mg Documented by: Calcium Carbonate/Glycine (Calcium Carbonate 500 Mg Tab.Chew) 1,000 mg PO ONETIME ONE Stop: 12/24/20 13:13 Last Admin: 12/24/20 14:04 Dose: 1,000 mg Documented by: Dexamethasone (Dexamethasone 4 Mg Tab) 6 mg PO ONETIME ONE Stop: 12/23/20 14:18 Last Admin: 12/23/20 14:25 Dose: 6 mg Documented by: Guaifenesin/Dextromethorphan (Guaifenesin/Dextromethorphan 100-10 Mg/5 Ml Soln 10 Ml Cup) 10 ml PO Q4H PRN PRN Reason: Cough Last Admin: 12/23/20 20:24 Dose: 10 ml Documented by: Lactated Ringer's (Ringers, Lactated) 1,000 mls @ 999 mls/hr IV ASDIRECTED [place] Last Admin: 12/23/20 15:06 Dose: 999 mls/hr Documented by: Lactated Ringer's (Ringers, Lactated) 1,000 mls @ 150 mls/hr IV ASDIRECTED [place] Last Admin: 12/23/20 18:06 Dose: 150 mls/hr Documented by: Remdesivir 200 mg/ Sodium (Chloride) 250 mls @ 250 mls/hr IV ONETIME ONE Stop: 12/23/20 18:02 Last Admin: 12/23/20 22:13 Dose: 250 mls/hr Documented by: Iopamidol (Iopamidol 755 Mg/Ml 500 Ml Multipack Bottle) 80 ml IVPUSH ONETIME ONE Stop: 12/23/20 16:54 Last Admin: 12/23/20 16:54 Dose: 80 ml Documented by: - Exam General: Alert, Oriented, Cooperative HEENT: Mucous Membr. Moist/[place] Neck: Trachea Midline Lungs: Clear to Auscultation, Normal Respiratory Effort Cardiovascular: Regular Rate, Regular Rhythm GI/Abdominal Exam: Normal Bowel Sounds, Soft, Non-Tender, No Organomegaly - Patient Data Lab Results Last 24 hrs: Laboratory Results - last 24 hr 12/27/20 12/27/20 Range/Units 06:13 06:13 WBC 7.95 (4.0-11.0) K/uL RBC 4.63 (4.50-5.90) M/uL Hgb 14.6 (13.0-17.0) g/dL Hct 41.5 (38.0-50.0) % MCV 89.6 (80.0-98.0) fL MCH 31.5 (27.0-32.0) pg MCHC 35.2 (31.0-37.0) g/dL RDW Std Deviation 40.7 (28.0-62.0) fl RDW Coeff of David 12 (11.0-15.0) % Plt Count 294 (150-400) K/uL MPV 9.50 (7.40-12.00) fL Add Manual Diff YES Neutrophils % (Manual) 82 H (48.0-80.0) % Lymphocytes % (Manual) 13 L (16.0-40.0) % Monocytes % (Manual) 4 (0.0-15.0) % Metamyelocytes % 1 % Nucleated RBC % 0.0 /100WBC Absolute Seg Neuts 6.5 H (1.4-5.7) Lymphocytes # (Manual) 1.0 (0.6-2.4) Monocytes # (Manual) 0.3 (0.0-0.8) Absolute Metamyelocyte 0.1 Nucleated RBCs # 0 K/uL Sodium 142 (136-148) mmol/L Potassium 4.8 (3.5-5.1) mmol/L Chloride 104 (98-107) mmol/L Carbon Dioxide 30.8 (21.0-32.0) mmol/L BUN 20 H (7.0-18.0) mg/dL Creatinine 0.9 (0.8-1.3) mg/dL Est Cr Clr Drug Dosing 102.56 mL/min Estimated GFR (MDRD) > 60.0 ml/min Glucose 127 H (74-106) mg/dL Calcium 7.8 L (8.5-10.1) mg/dL Total Bilirubin 0.7 (0.2-1.0) mg/dL AST 63 H (15-37) IU/L ALT 83 H (14-63) IU/L Alkaline Phosphatase 28 L (46-116) U/L Total Protein 5.6 L (6.4-8.2) g/dL Albumin 2.5 L (3.4-5.0) g/dL Globulin 3.1 (2.6-4.0) g/dL Albumin/Globulin Ratio 0.8 L (0.9-1.6) Result Diagrams: 12/27/20 06:13 12/27/20 06:13 Sepsis Event Note - Evaluation Sepsis Screening Result: No Definite Risk - Focused Exam Vital Signs: Vital Signs Temp Pulse Resp BP Pulse Ox 12/27/20 11:35 98.3 F 74 20 121/75 96 12/27/20 08:00 97.7 F 54 L 20 128/82 92 L 10/05/21 04:46 98.1 F 65 16 119/81 94 L - Problem List & Annotations (1) MEAGHAN (acute kidney injury) SNOMED Code(s): 36719483, 86598745 Code(s): N17.9 - ACUTE KIDNEY FAILURE, UNSPECIFIED Status: Acute Current Visit: Yes (2) HTN (hypertension) SNOMED Code(s): 28065904 Code(s): I10 - ESSENTIAL (PRIMARY) HYPERTENSION Status: Acute Current Visit: Yes (3) Hyponatremia SNOMED Code(s): 88389503 Code(s): E87.1 - HYPO-OSMOLALITY AND HYPONATREMIA Status: Acute Current Visit: Yes (4) COVID-19 virus infection SNOMED Code(s): 200631893 Code(s): U07.1 - COVID-19 Status: Acute Current Visit: Yes - Problem List Review Problem List Initiated/Reviewed/Updated: Yes - My Orders Last 24 Hours: My Active Orders 12/28/20 05:11 CBC WITH AUTO DIFF [HEME] AM CMP [COMPREHENSIVE METABOLIC PN,CMP] [CHEM] AM 12/29/20 05:11 CBC WITH AUTO DIFF [HEME] AM CMP [COMPREHENSIVE METABOLIC PN,CMP] [CHEM] AM 12/30/20 05:11 CBC WITH AUTO DIFF [HEME] AM CMP [COMPREHENSIVE METABOLIC PN,CMP] [CHEM] AM - Plan Plan:: 1. Acute respiratory failure secondary to COVID-19 pneumonia -Continue dexamethasone 6 mg per oral route once a day -Continue oxygen supply as needed, currently on 4 L -Continue Combivent every 4 hours as needed for shortness of breath -Continue Robitussin 10 mL every 4 hours as needed for cough -Continue Tylenol 650 mg every 6 as needed for fever -Continue I-S in the prone position 2. Acute kidney injury -Corrected 3. Hyponatremia -Corrected 4. Hypertension -The patient is currently normotensive, hold blood pressure medications
[2020-12-27] MEDS: Dexamethasone 4 MG Tab PO SCH (14:49)
[2020-12-27] MEDS: Enoxaparin 40 MG/0.4 ML Syringe SUBCUT SCH (21:17)
[2020-12-27] MEDS: REMDESIVIR 100 MG in Sodium Chloride 0.9% 100 ML IV SCH (21:20)
[2020-12-28 07:27] LABS: BLOOD UREA NITROGEN,BUN 17 mg/dL (7.0-18.0); CARBON DIOXIDE,CO2 27.7 mmol/L (21.0-32.0); CHLORIDE,CL 104 mmol/L (98-107); GLUCOSE RANDOM 123 mg/dL (74-106); POTASSIUM,K 4.9 mmol/L (3.5-5.1); SODIUM,NA 142 mmol/L (136-148)
[2020-12-28] MEDS: Pantoprazole 40 MG Tab.CR PO SCH (08:59)
--- NOTE | 2020-12-28 11:42 | PCM.DCSUM1 ---
Discharge Summary - Hospital Course Free Text/Narrative:: The patient is a 45-year-old male, on day 6 of service, who has a significant past medical history of obesity and hypertension, who was admitted to the medical floor due to acute respiratory failure secondary to COVID-19 pneumonia. While in hospital the patient was also found to be suffering from acute kidney injury as well as hyponatremia. For the patient's COVID-19, he was treated with IV of remdesivir, initially received a dose of 200 mg per IV route and then subsequently received 4 bags of 100 mg per IV route, 1 bag per day. While in hospital he also received dexamethasone 6 mg per oral route, will receive 1 more dose in the hospital today, and then will be sent home on a 5-day course. The patient also received Combivent treatment while in the hospital for shortness of breath, and will be sent home on the remaining medication he has not used. The patient while in hospital, for his cough was using Robitussin, and will be sent home on the same medication. The patient's oxygen demand was initially higher upon admission to the hospital, but has gradually decreased to the level where he only requires 3 L upon exertion. This is evident through a walking trial which was done with the patient this morning, which showed he requires no oxygen at rest, but will require 3 L while ambulating and will be sent home with an oxygen apparatus to use. With respect to the patient's acute kidney injury and hyponatremia, the patient was given fluids, and was encouraged to orally hydrate and eat in order to decrease his creatinine level and increase his sodium levels. Through this treatment and education, both the patient's MEAGHAN and hyponatremia resolved. The patient's hypertension did not require treatment in the hospital, and his medications were held. Upon discharge, the patient is to resume his blood pressure medications, and to follow-up with his PCP in regards to a medication review. The patient is now stable and ready to be discharged. - Discharge Data Discharge Date: 12/28/20 Discharge Disposition: Home, Self-Care 01 Condition: Stable - Referral to Home Health Primary Care Physician: JEANETTE Monson - Discharge Diagnosis/Problem(s) (1) MEAGHAN (acute kidney injury) SNOMED Code(s): 49582223, 53577081 ICD Code: N17.9 - ACUTE KIDNEY FAILURE, UNSPECIFIED Status: Acute Current Visit: Yes (2) HTN (hypertension) SNOMED Code(s): 61460979 ICD Code: I10 - ESSENTIAL (PRIMARY) HYPERTENSION Status: Acute Current Visit: Yes (3) Hyponatremia SNOMED Code(s): 68459188 ICD Code: E87.1 - HYPO-OSMOLALITY AND HYPONATREMIA Status: Acute Current Visit: Yes (4) COVID-19 virus infection SNOMED Code(s): 328255095 ICD Code: U07.1 - COVID-19 Status: Acute Current Visit: Yes - Patient Instructions Diet: Regular Diet as Tolerated Activity: As Tolerated Showering/Bathing: May Shower Other/Special Instructions: -Be compliant with medication and take them at scheduled times. -If you experience respiratory difficulty, chest pain, or heart racing, come back to the hospital or nearest emergency room. -Use your home oxygen apparatus when moving around. -Wear a mask when travelling outside your home. -Follow up with your PCP in 2 weeks time - Discharge Plan Prescriptions/Med Rec: dexAMETHasone [Dexamethasone] 6 mg PO Q24H #8 tablet guaiFENesin [Robitussin] 5 ml PO Q4H PRN #120 ml PRN Reason: Cough Home Medications: Home Meds Losartan/Hydrochlorothiazide [Losartan-HCTZ 100-12.5 MG] 1 each PO DAILY 12/14/20 [History] amLODIPine [Norvasc] 5 mg PO DAILY 12/23/20 [History] dexAMETHasone [Dexamethasone] 6 mg PO Q24H #8 tablet 12/28/20 [Rx] guaiFENesin [Robitussin] 5 ml PO Q4H PRN #120 ml 12/28/20 [Rx] Oxygen Therapy Mode: Nasal Cannula Oxygen Flow Rate (L/min): 3 (3L on exertion/moving around, No oxygen needed at rest) Patient Handouts: COVID-19, Symptoms of COVID-19 - CDC (05/16/2020), Frequently Asked Questions About COVID-19 Vaccination - CDC (09/06/2020), COVID-19: Quarantine vs. Isolation - [facility] (03/10/2020) Referrals: Sharon Hopkins PA [Primary Care Provider] - 01/13/21 2:00 pm - Discharge Summary/Plan Comment DC Time >30 min.: Yes Total # of Minutes for Discharge Time: 35 minutes - Review of Systems General: Denies: Fever, Weakness, Fatigue HEENT: Denies: Headaches, Sore Throat Pulmonary: Denies: Shortness of Breath, Cough Cardiovascular: Denies: Chest Pain, Palpitations Gastrointestinal: Denies: Abdominal Pain, Constipation, Diarrhea Genitourinary: Denies: Dysuria - Patient Data Vitals - Most Recent: Last Vital Signs Temp 96.2 F L 12/28/20 00:10 Pulse 52 L 12/28/20 00:10 Resp 19 12/28/20 00:10 BP 119/79 12/28/20 00:10 Pulse Ox 96 12/28/20 00:10 Weight - Most Recent: 266 lb I&O - Last 24 hours: Intake & Output 12/27/20 12/28/20 12/28/20 22:59 06:59 14:59 Intake Total 750 100 Output Total 425 Balance 325 100 Lab Results - Last 24 hrs: Laboratory Results - last 24 hr 12/28/20 12/28/20 Range/Units 05:32 05:32 WBC 7.60 (4.0-11.0) K/uL RBC 5.07 (4.50-5.90) M/uL Hgb 16.1 (13.0-17.0) g/dL Hct 46.0 (38.0-50.0) % MCV 90.7 (80.0-98.0) fL MCH 31.8 (27.0-32.0) pg MCHC 35.0 (31.0-37.0) g/dL RDW Std Deviation 41.8 (28.0-62.0) fl RDW Coeff of David 13 (11.0-15.0) % Plt Count 346 (150-400) K/uL MPV 9.90 (7.40-12.00) fL Add Manual Diff YES Neutrophils % (Manual) 74 (48.0-80.0) % Band Neutrophils % 2 % Lymphocytes % (Manual) 16 (16.0-40.0) % Atypical Lymphs % 2 Monocytes % (Manual) 6 (0.0-15.0) % Nucleated RBC % 0.0 /100WBC Absolute Seg Neuts 5.6 (1.4-5.7) Band Neutrophils # 0.2 Lymphocytes # (Manual) 1.2 (0.6-2.4) Monocytes # (Manual) 0.5 (0.0-0.8) Nucleated RBCs # 0 K/uL Sodium 142 (136-148) mmol/L Potassium 4.9 (3.5-5.1) mmol/L Chloride 104 (98-107) mmol/L Carbon Dioxide 27.7 (21.0-32.0) mmol/L BUN 17 (7.0-18.0) mg/dL Creatinine 0.7 L (0.8-1.3) mg/dL Est Cr Clr Drug Dosing 131.86 mL/min Estimated GFR (MDRD) > 60.0 ml/min Glucose 123 H (74-106) mg/dL Calcium 8.1 L (8.5-10.1) mg/dL Total Bilirubin 0.6 (0.2-1.0) mg/dL AST 53 H (15-37) IU/L ALT 96 H (14-63) IU/L Alkaline Phosphatase 28 L (46-116) U/L Total Protein 6.0 L (6.4-8.2) g/dL Albumin 2.7 L (3.4-5.0) g/dL Globulin 3.3 (2.6-4.0) g/dL Albumin/Globulin Ratio 0.8 L (0.9-1.6) Med Orders - Current: Current Medications Acetaminophen (Acetaminophen 325 Mg Tab) 650 mg PO Q6H PRN PRN Reason: Fever Albuterol/Ipratropium (Albuterol/Ipratropium 4 Gm Inhalation [place]) 0 gm INH Q4H PRN PRN Reason: Dyspnea Calcium Carbonate/Glycine (Calcium Carbonate 500 Mg Tab.Chew) 500 mg PO Q4HR PRN PRN Reason: Indigestion Dexamethasone (Dexamethasone 4 Mg Tab) 6 mg PO Q24H [place] Last Admin: 12/27/20 14:49 Dose: 6 mg Documented by: Enoxaparin Sodium (Enoxaparin 40 Mg/0.4 Ml Syringe) 40 mg SUBCUT Q24H [place] Last Admin: 12/27/20 21:17 Dose: 40 mg Documented by: Guaifenesin (Guaifenesin 100 Mg/5 Ml Soln 5 Ml Ud Cup) 100 mg PO Q4H PRN PRN Reason: Cough Last Admin: 12/25/20 08:59 Dose: 100 mg Documented by: Pantoprazole Sodium (Pantoprazole 40 Mg Tab.Cr) 40 mg PO DAILY [facility] Last Admin: 12/28/20 08:59 Dose: 40 mg Documented by: Sodium Chloride (Sodium Chloride 0.9% 10 Ml Syringe) 10 ml FLUSH ASDIRECTED PRN PRN Reason: Keep Vein Open Last Admin: 12/23/20 14:26 Dose: 10 ml Documented by: Sodium Chloride (Sodium Chloride 0.9% 2.5 Ml Syringe) 2.5 ml FLUSH ASDIRECTED PRN PRN Reason: Keep Vein Open Last Admin: 12/23/20 14:26 Dose: 2.5 ml Documented by: Discontinued Medications Acetaminophen (Acetaminophen 500 Mg Tab) 1,000 mg PO ONETIME ONE Stop: 12/23/20 14:18 Last Admin: 12/23/20 14:25 Dose: 1,000 mg Documented by: Calcium Carbonate/Glycine (Calcium Carbonate 500 Mg Tab.Chew) 1,000 mg PO ONETIME ONE Stop: 12/24/20 13:13 Last Admin: 12/24/20 14:04 Dose: 1,000 mg Documented by: Dexamethasone (Dexamethasone 4 Mg Tab) 6 mg PO ONETIME ONE Stop: 12/23/20 14:18 Last Admin: 12/23/20 14:25 Dose: 6 mg Documented by: Guaifenesin/Dextromethorphan (Guaifenesin/Dextromethorphan 100-10 Mg/5 Ml Soln 10 Ml Cup) 10 ml PO Q4H PRN PRN Reason: Cough Last Admin: 12/23/20 20:24 Dose: 10 ml Documented by: Lactated Ringer's (Ringers, Lactated) 1,000 mls @ 999 mls/hr IV ASDIRECTED [facility] Last Admin: 12/23/20 15:06 Dose: 999 mls/hr Documented by: Lactated Ringer's (Ringers, Lactated) 1,000 mls @ 150 mls/hr IV ASDIRECTED [facility] Last Admin: 12/23/20 18:06 Dose: 150 mls/hr Documented by: Remdesivir 200 mg/ Sodium (Chloride) 250 mls @ 250 mls/hr IV ONETIME ONE Stop: 12/23/20 18:02 Last Admin: 12/23/20 22:13 Dose: 250 mls/hr Documented by: Remdesivir 100 mg/ Sodium (Chloride) 100 mls @ 100 mls/hr IV Q24H [place] Stop: 12/27/20 22:59 Last Admin: 12/27/20 21:20 Dose: 100 mls/hr Documented by: Iopamidol (Iopamidol 755 Mg/Ml 500 Ml Multipack Bottle) 80 ml IVPUSH ONETIME ONE Stop: 12/23/20 16:54 Last Admin: 12/23/20 16:54 Dose: 80 ml Documented by: - Exam General: Reports: Alert, Oriented, Cooperative HEENT: Reports: Mucous Membr. Moist/[place] Neck: Reports: Trachea Midline Lungs: Reports: Clear to Auscultation, Normal Respiratory Effort Cardiovascular: Reports: No Murmurs GI/Abdominal Exam: Normal Bowel Sounds, Soft, Non-Tender
[2020-12-28] MEDS: Dexamethasone 4 MG Tab PO SCH (13:30)
[2020-12-28 14:16] VITALS: BP 118/76; PULSE 64
== END 2020-12-28 14:10 | disposition home or self-care (01) | DRG 177 ==
LOC: MW.ED 13:55 → MW.MS 15:37
PROVIDERS: ADMIT Student in an Organized Health Care Education/Training Program; ATTEND Student in an Organized Health Care Education/Training Program
PROC: XW033E5 Introduction of Remdesivir Anti-infective into Peripheral Vein, Percutaneous Approach, New Technology Group 5 (ICD-10-PCS; principal; 2020-12-23)
PROC: 3E0DX3Z Introduction of Anti-inflammatory into Mouth and Pharynx, External Approach (ICD-10-PCS; 2020-12-23)
DX: U07.1 COVID-19 (principal); J12.82 Pneumonia due to coronavirus disease 2019; J96.01 Acute respiratory failure with hypoxia; N17.9 Acute kidney failure, unspecified; E87.1 Hypo-osmolality and hyponatremia; I10 Essential (primary) hypertension; Z79.899 Other long term (current) drug therapy; Z90.49 Acquired absence of other specified parts of digestive tract; K76.0 Fatty (change of) liver, not elsewhere classified; Z88.1 Allergy status to other antibiotic agents; Z86.16 Personal history of COVID-19; Z86.19 Personal history of other infectious and parasitic diseases; Z98.52 Vasectomy status
CPT/HCPCS: 36415; 71045; 71045-26; 71275; 71275-26; 80053; 84484; 85025; 86140; 93005; 99291; A9270-GY; J1650; J7050; J7120; J8540; Q9967

== ENCOUNTER 2023-02-27 10:27 | Day surgery (SDC) | payer OTHER ==
[~2023-02-27 10:27] MED LIST: Lactated Ringers 1,000 ML IV SCH
[2023-02-27] MEDS ORDERED: propofoL 50 ML ONE (11:04)
[2023-02-27] MEDS ORDERED: dexmedeTOMIDine HCl 200 MCG/2 ML SDV ONE (11:05)
[2023-02-27 13:49] VITALS: BP 122/75; PULSE 61
== END 2023-02-27 12:53 | disposition home or self-care (01) ==
LOC: MW.SDS 10:27
PROVIDERS: ATTEND Surgery
DX: Z12.11 Encounter for screening for malignant neoplasm of colon (principal); K57.30 Diverticulosis of large intestine without perforation or abscess without bleeding; I10 Essential (primary) hypertension; J45.909 Unspecified asthma, uncomplicated; E66.01 Morbid (severe) obesity due to excess calories; Z68.41 Body mass index [BMI] 40.0-44.9, adult; Z80.0 Family history of malignant neoplasm of digestive organs; Z88.1 Allergy status to other antibiotic agents; Z88.8 Allergy status to other drugs, medicaments and biological substances; Z79.899 Other long term (current) drug therapy; Z90.49 Acquired absence of other specified parts of digestive tract
CPT/HCPCS: 45378; J2704; J7120; 00812; J3490